=== PATIENT | female | born 1945 | race Caucasian/White ===

== ENCOUNTER 2016-09-13 13:21 | Emergency (ER) | payer MEDICARE, MEDICAID ==
[2016-09-13] MEDS ORDERED: ASPIRIN 81 MG TABLET, CHEWABLE PO ONE (13:28)
--- NOTE | 2016-09-13 13:37 | ER Document Report ---
ED Medical Screen (RME) - General Stated Complaint: CHEST PAIN,COUGH,CONGESTION Time seen by provider: 13:35 Mode of Arrival: Wheelchair Information source: Patient Notes: 71-year-old female presents to ED for chest pain the whole chest with cough for 2 weeks. Denies any fever or cardiac history. I have greeted and performed a rapid initial assessment of this patient. A comprehensive ED assessment and evaluation of the patient, analysis of test results and completion of medical decision making process will be conducted by an additional ED providers. TRAVEL OUTSIDE OF THE [place] IN LAST 30 DAYS: No - Related Data Allergies/Adverse Reactions: No Known Allergies Allergy (Verified 07/13/16 11:59) Past Medical History - Past Medical History Cardiac Medical History: Reports: Hx Hypertension - Hx of, no meds ever Denies: Hx Heart Attack Pulmonary Medical History: Reports: Hx Bronchitis, Hx COPD Denies: Hx Asthma, Hx Pneumonia Neurological Medical History: Denies: Hx Seizures GI Medical History: Reports: Hx Gastroesophageal Reflux Disease Musculoskeltal Medical History: Reports Hx Arthritis - hands, Comment Only Hx Muscle Weakness - From progressive ataxia slurred speech and decreased use of lower extremiti Psychiatric Medical History: Reports: Hx Dementia Infectious Medical History: Past Surgical History: Reports: Hx Hysterectomy, Hx Orthopedic Surgery - L foot ; R ankle - Immunizations Immunizations up to date: No Hx Diphtheria, Pertussis, Tetanus Vaccination: Yes
[2016-09-13 14:10] LABS: ABSOLUTE EOSINOPHILS # (AUTO) 0.8 10^3/uL (0.0-0.6); ABSOLUTE LYMPHOCYTES (AUTO) 1.8 10^3/uL (0.5-4.7); ABSOLUTE MONOCYTES (AUTO) 0.6 10^3/uL (0.1-1.4); ABSOLUTE NEUT (AUTO) 3.3 10^3/uL (1.7-8.2); BASOPHILS % (AUTO) 0.8 % (0-2); HEMATOCRIT 46.5 % (36.0-47.0); HEMOGLOBIN 15.2 g/dL (12.0-15.5); HGB HCT DIFFERENCE -0.9; MEAN CORPUSCULAR HGB CONC 32.7 g/dL (32.0-36.0); MEAN CORPUSCULAR VOLUME 95 fl (80-97); RED CELL DISTRIBUTION WIDTH 13.5 % (11.5-14.0); SEGMENTED NEUTROPHILS % (AUTO) 50.2 % (42-78); WHITE BLOOD COUNT 6.5 10^3/uL (4.0-10.5)
[2016-09-13 14:30] LABS: ALANINE AMINOTRANSFERASE 45 U/L (9-52); ALBUMIN 4.6 g/dL (3.5-5.0); ALKALINE PHOSPHATASE 130 U/L (38-126); ANION GAP 13 (5-19); ASPARTATE AMINO TRANSFERASE 34 U/L (14-36); BILIRUBIN,TOTAL 0.6 mg/dL (0.2-1.3); BLOOD UREA NITROGEN 12 mg/dL (7-20); CALCIUM 10.5 mg/dL (8.4-10.2); CARBON DIOXIDE 29 mmol/L (22-30); CHLORIDE 103 mmol/L (98-107); CREATINE KINASE 47 U/L (30-135); CREATININE RESULT 0.65 mg/dL (0.52-1.25); GLUCOSE 84 mg/dL (75-110); MAGNESIUM 2.2 mg/dL (1.6-2.3); POTASSIUM 4.7 mmol/L (3.6-5.0); SODIUM 144.7 mmol/L (137-145); TOTAL PROTEIN 7.5 g/dL (6.3-8.2)
[2016-09-13 14:42] LABS: CREATINE KINASE MB 0.72 ng/mL (<4.55)
[2016-09-13 14:44] LABS: TROPONIN I < 0.012 ng/mL
[2016-09-13] MEDS ORDERED: METHYLPREDNISOLONE INJ 125 MG/2 ML SDV IV ONE (16:13)
[2016-09-13] MEDS ORDERED: IPRATROPIUM/ALBUTEROL 0.5-2.5 MG/3 ML AMPUL NEB ONE ×3 (16:13→19:11)
--- NOTE | 2016-09-13 16:15 | ER Document Report ---
ED General - General Mode of Arrival: Wheelchair Information source: Patient, Relative - son and daughter TRAVEL OUTSIDE OF THE [place] IN LAST 30 DAYS: No - HPI Associated symptoms: Productive cough <LUBNA BOND - Last Filed: 09/13/16 21:58> <SAUMYAIRASEMA SRIDEVI - Last Filed: 09/13/16 22:47> - General Chief Complaint: Chest Pain Stated Complaint: CHEST PAIN,COUGH,CONGESTION Notes: Patient is a 71-year-old female presenting to the emergency department with complaints of difficulty breathing, cough and wheezing. Patient has also had some intermittent chest pain consistent with her cough. Patient has had the chest pain and increased cough for one week. Over the last 2 nights the patient has not been able to sleep well due to increased wheezing and coughing. Patient is present with her son and daughter, daughter is primary rn urgent care for the patient. Patient has an inhaler that she uses at home but has not been helping much past couple days. Patient also has a nebulizer at home but does not prefer to use it. Patient is a former smoker and quit approximately 15 years ago. Patient is wheelchair bound. (LUBNA BOND) - Related Data Allergies/Adverse Reactions: No Known Allergies Allergy (Verified 09/13/16 13:35) Past Medical History - General Information source: Patient - Social History Smoking Status: Former Smoker Cigarette use (# per day): No Chew tobacco use (# tins/day): No Frequency of alcohol use: None Drug Abuse: None Family History: None Patient has suicidal ideation: No Patient has homicidal ideation: No - Past Medical History Cardiac Medical History: Reports: Hx Hypertension - Hx of, no meds ever Pulmonary Medical History: Reports: Hx Bronchitis, Hx COPD GI Medical History: Reports: Hx Gastroesophageal Reflux Disease Musculoskeltal Medical History: Reports Hx Arthritis - hands, Comment Only Hx Muscle Weakness - From progressive ataxia slurred speech and decreased use of lower extremiti Psychiatric Medical History: Reports: Hx Dementia Infectious Medical History: Past Surgical History: Reports: Hx Hysterectomy, Hx Orthopedic Surgery - L foot ; R ankle - Immunizations Immunizations up to date: No Hx Diphtheria, Pertussis, Tetanus Vaccination: Yes Hx Pneumococcal Vaccination: 07/29/13 <LUBNA BOND - Last Filed: 09/13/16 21:58> Review of Systems - Review of Systems Constitutional: No symptoms reported EENT: No symptoms reported Cardiovascular: See HPI, Chest pain Respiratory: See HPI, Cough, Hurts to breathe, Short of breath, Wheezing Gastrointestinal: No symptoms reported Genitourinary: No symptoms reported Female Genitourinary: No symptoms reported Musculoskeletal: No symptoms reported Skin: No symptoms reported Hematologic/Lymphatic: No symptoms reported Neurological/Psychological: No symptoms reported -: Yes All other systems reviewed and negative <LUBNA BOND - Last Filed: 09/13/16 21:58> Physical Exam - Vital signs Interpretation: Tachycardic - General General appearance: Appears well, Alert In distress: Mild - HEENT Head: Normocephalic, Atraumatic Eyes: Normal Pupils: PERRL Mucous membranes: Normal - Respiratory Respiratory status: No respiratory distress Chest status: Nontender Breath sounds: Wheezing - coarse wheezing throughout Chest palpation: Normal - Cardiovascular Rhythm: Regular Heart sounds: Normal auscultation Murmur: No - Abdominal Inspection: Normal Distension: No distension Bowel sounds: Normal Tenderness: Nontender Organomegaly: No organomegaly - Back Back: Normal, Nontender - Extremities General upper extremity: Normal inspection, Normal ROM, Normal strength General lower extremity: Normal inspection, Normal ROM, Normal strength - Neurological Neuro grossly intact: Yes Cognition: Normal Orientation: AAOx4 [place] Coma Scale Eye Opening: Spontaneous [place] Coma Scale Verbal: Oriented [place] Coma Scale Motor: Obeys Commands [place] Coma Scale Total: 15 Speech: Normal - Psychological Associated symptoms: Normal affect, Normal mood - Skin Skin Temperature: Warm Skin Moisture: Dry <LUBNA BOND - Last Filed: 09/13/16 21:58> Course - Laboratory Result Diagrams: 09/13/16 13:45 09/13/16 13:45 <NELIKOLTONLUBNA - Last Filed: 09/13/16 21:58> - Laboratory Result Diagrams: 09/13/16 13:45 09/13/16 13:45 - Diagnostic Test Radiology reviewed: Image reviewed, Reports reviewed <IRASEMA KERNS - Last Filed: 09/13/16 22:47> - Re-evaluation Re-evalutation: 09/13/16 Patient with no acute findings on blood work. Patient's wheezing has nearly resolved after nebulizer treatment, steroid, and magnesium. The patient has dementia and has pulled out her line. Patient is given Ativan to calm her down. Had a long discussion with family who would prefer to take the patient home if possible as her dementia becomes very uncontrollable and she is admitted to the hospital. The patient's oxygen saturation is 95%. She is nonambulatory. Patient's respiratory rate is 20-22. She is nonlabored. They' re instructed immediately to return with this patient if she becomes any worse and to follow-up with her doctor Friday otherwise. Understand and agree with this plan. Stable for discharge. The patient will also be treated for a yeast infection on her skin. (IRASEMA KERNS) - Vital Signs Vital signs: Temp Pulse Resp BP Pulse Ox 98.2 F 114 H 19 111/58 L 94 09/13/16 20:45 09/13/16 13:37 09/13/16 20:42 09/13/16 20:42 09/13/16 20:42 (LUBNA BOND) (IRASEMA KERNS) - Laboratory Laboratory results interpreted by me: 09/13/16 09/13/16 13:45 13:45 Eosinophils % 12.0 H Absolute Eosinophils 0.8 H Calcium 10.5 H Alkaline Phosphatase 130 H (LUBNA BOND) (IRASEMA KERNS) Discharge <LUBNA BOND - Last Filed: 09/13/16 21:58> <IRASEMA KERNS - Last Filed: 09/13/16 22:47> - Discharge Clinical Impression: COPD exacerbation Condition: Stable Disposition: HOME, SELF-CARE Additional Instructions: Please return immediately if you have any worsening symptoms or concerns. Prescriptions: Ipratropium/Albuterol Sulfate [Duoneb 3 ml Ampul] 3 ml NEB [id number] PRN #30 vial.neb PRN Reason: Levofloxacin [Levaquin 750 mg Tablet] 750 mg PO DAILY #5 tablet Nystatin 15 gm TP DAILY 10 Days Nystatin 1 each MC DAILY 30 Days Prednisone 40 mg PO DAILY #6 tablet Referrals: EMI MARTINEZ MD [Primary Care Provider] - Follow up in 3-5 days Scribe Attestation: 09/13/16 22:47 I personally performed the services described in the documentation, reviewed and edited the documentation which was dictated to the scribe in my presence, and it accurately records my words and actions. (IRASEMA KERNS) Scribe Documentation - Scribe Written by Scribsilva:: Lubna Bond 09/13/16 21:30 acting as scribe for :: Saumya <LUBNA BOND - Last Filed: 09/13/16 21:58>
[2016-09-13] MEDS: MAGNESIUM SULFATE/D5W 100 ML IV SCH ×2 (16:20→17:43)
[2016-09-13] MEDS ORDERED: NORMAL SALINE 1000 ML 1,000 ML IV ONE (16:24)
[2016-09-13] MEDS ORDERED: LORAZEPAM INJ 2 MG/1 ML VIAL IM ONE (18:01)
--- NOTE | 2016-09-13 20:00 | EKG REPORT ---
SEVERITY:- OTHERWISE NORMAL ECG - SINUS RHYTHM BORDERLINE LEFT AXIS DEVIATION : Confirmed by: Lynette Bain MD 13-Sep-2016 20:00:00
[2016-09-13] MEDS ORDERED: LIDOCAINE 1% INJ-PF (10 MG/ML) 30 ML SDV INJ ONE (20:20)
[2016-09-13] MEDS ORDERED: CEFTRIAXONE INJ 1000 MG VIAL IM ONE (20:20)
[2016-09-13 20:47] VITALS: BP 111/58
[2016-09-13] MEDS ORDERED: NYSTATIN CREAM 15 GM TP ONE (21:14)
== END 2016-09-13 20:50 | disposition home or self-care (01) ==
LOC: ER 13:21
DX: J44.1 Chronic obstructive pulmonary disease with (acute) exacerbation (principal); R07.9 Chest pain, unspecified; R05 Cough; F03.90 Unspecified dementia, unspecified severity, without behavioral disturbance, psychotic disturbance, mood disturbance, and anxiety; F06.8 Other specified mental disorders due to known physiological condition; I10 Essential (primary) hypertension; K21.9 Gastro-esophageal reflux disease without esophagitis; Z90.710 Acquired absence of both cervix and uterus
CPT/HCPCS: 93005; 94640 ×2; 99285; 96372; 96361; 96375; 96365; 36415; 82553; 82550; 83735; 84443; 85025; 80053; 84484; 71020; 93010; A9270 ×2; J3490 ×2; J2930; J2060; J3475; J0696; J7030; J7620

== ENCOUNTER 2016-09-27 10:28 | Emergency (ER) | payer MEDICARE, MEDICAID ==
--- NOTE | 2016-09-27 10:45 | ER Document Report ---
ED Medical Screen (RME) - General Stated Complaint: KNEE INJURY Notes: left knee onset: last night hit her knee on the toilet seat, denies fall has a 4cm laceration down to patella tetanus UTD I have greeted and performed a rapid initial assessment of this patient. A comprehensive ED assessment and evaluation of the patient, analysis of test results and completion of the medical decision making process will be conducted by additional ED providers. TRAVEL OUTSIDE OF THE [place] IN LAST 30 DAYS: No - Related Data Allergies/Adverse Reactions: No Known Allergies Allergy (Verified 09/13/16 13:35) Past Medical History - Past Medical History Cardiac Medical History: Reports: Hx Hypertension - Hx of, no meds ever Denies: Hx Heart Attack Pulmonary Medical History: Reports: Hx Bronchitis, Hx COPD Denies: Hx Asthma, Hx Pneumonia Neurological Medical History: Denies: Hx Seizures Renal/ Medical History: Denies: Hx Peritoneal Dialysis GI Medical History: Reports: Hx Gastroesophageal Reflux Disease Musculoskeltal Medical History: Reports Hx Arthritis - hands, Comment Only Hx Muscle Weakness - From progressive ataxia slurred speech and decreased use of lower extremiti Psychiatric Medical History: Reports: Hx Dementia Infectious Medical History: Past Surgical History: Reports: Hx Hysterectomy, Hx Orthopedic Surgery - L foot ; R ankle - Immunizations Immunizations up to date: No Hx Diphtheria, Pertussis, Tetanus Vaccination: Yes Physical Exam - Vital signs Vitals: Temp Pulse Resp BP Pulse Ox 97.7 F 89 18 127/66 H 96 09/27/16 10:34 09/27/16 10:34 09/27/16 10:34 09/27/16 10:34 09/27/16 10:34 Course - Vital Signs Vital signs: Temp Pulse Resp BP Pulse Ox 97.7 F 89 18 127/66 H 96 09/27/16 10:34 09/27/16 10:34 09/27/16 10:34 09/27/16 10:34 09/27/16 10:34
[2016-09-27] MEDS ORDERED: LIDOCAINE 1%/EPINEPHRINE INJ 20 ML VIAL INJ ONE (11:39)
--- NOTE | 2016-09-27 11:42 | ER Document Report ---
ED General - General Chief Complaint: Knee Injury Stated Complaint: KNEE INJURY Mode of Arrival: Wheelchair Information source: Patient, Relative Notes: Patient is a 71 yo female with history of dementia who presents s/p left knee injury that occurred around 10 pm last night. Family states patient hit her left knee on the toilet while using the bathroom. She has prior injury to that knee 2 months ago requiring suture repair and she reinjured the same area. Tetanus UTD. No drainage, bleeding or swelling noted to area. TRAVEL OUTSIDE OF THE [place] IN LAST 30 DAYS: No - Related Data Allergies/Adverse Reactions: No Known Allergies Allergy (Verified 09/13/16 13:35) Past Medical History - Social History Smoking Status: Smoker,Current Status Unk Family History: None Patient has suicidal ideation: No Patient has homicidal ideation: No - Past Medical History Cardiac Medical History: Reports: Hx Hypertension - Hx of, no meds ever Denies: Hx Heart Attack Pulmonary Medical History: Reports: Hx Bronchitis, Hx COPD Denies: Hx Asthma, Hx Pneumonia Neurological Medical History: Denies: Hx Seizures Renal/ Medical History: Denies: Hx Peritoneal Dialysis GI Medical History: Reports: Hx Gastroesophageal Reflux Disease Musculoskeltal Medical History: Reports Hx Arthritis - hands, Comment Only Hx Muscle Weakness - From progressive ataxia slurred speech and decreased use of lower extremiti Psychiatric Medical History: Reports: Hx Dementia Infectious Medical History: Past Surgical History: Reports: Hx Hysterectomy, Hx Orthopedic Surgery - L foot ; R ankle - Immunizations Immunizations up to date: No Hx Diphtheria, Pertussis, Tetanus Vaccination: Yes Hx Pneumococcal Vaccination: 07/29/13 Review of Systems - Review of Systems Constitutional: No symptoms reported EENT: No symptoms reported Cardiovascular: No symptoms reported Respiratory: No symptoms reported Gastrointestinal: No symptoms reported Genitourinary: No symptoms reported Female Genitourinary: No symptoms reported Musculoskeletal: See HPI Skin: See HPI Hematologic/Lymphatic: No symptoms reported Neurological/Psychological: No symptoms reported Physical Exam - Vital signs Vitals: Temp Pulse Resp BP Pulse Ox 97.7 F 89 18 127/66 H 96 09/27/16 10:34 09/27/16 10:34 09/27/16 10:34 09/27/16 10:34 09/27/16 10:34 Interpretation: Normal - diastolic elevation but otherwise normal - Notes Notes: PHYSICAL EXAM: CONSTITUTIONAL: Alert and oriented, well-appearing and in no acute distress. Sitting comfortably in wheelchair. HENT: Normocephalic, atraumatic. Moist mucous membranes. EYES: Pupils equal round and reactive to light, EOM intact. Sclera anicteric, conjunctiva are normal. No entrapment. HEART: Regular rate and rhythm without murmurs. LUNGS: CTAB and equal. No wheezes, rales or rhonchi. GI: Normactive bowel sounds. Non-tender, non-distended. No organomegaly. no CVAT. EXTREMITIES: Normal range of motion, no pitting edema. No cyanosis. Cap Refill < 3 seconds. SKIN: Warm and dry. Normal turgor. No rashes or lesions noted. 5 cm linear laceration to anterior surface of patella, bleeding controlled, no swelling, erythema or drainage noted. Course - Re-evaluation Re-evalutation: 09/27/16 11:38 Patient seen and examined. Tetanus UTD. I have consulted with the supervisory physician per [facility] guidelines. Due to laceration left opened >12 hours , will discuss risk of closure with patient and patient's family. Patient's family voiced understanding of increased risk of infection in delayed closure of laceration. 09/27/16 12:50 Review of left knee xray showed no dislocation, fracture or metallic foreign body. Irrigation and exploration of wound revealed no foreign body. Laceration closed using steri-strips due to family's concern with patient's mobility and location of laceration. Discharged home in stable condition, script for abx given for empiric coverage. Follow-up with primary care doctor. Return precautions given. - Vital Signs Vital signs: Temp Pulse Resp BP Pulse Ox 97.8 F 80 18 125/60 100 09/27/16 13:04 09/27/16 13:04 09/27/16 13:04 09/27/16 13:04 09/27/16 13:04 - Diagnostic Test Radiology reviewed: Image reviewed, Reports reviewed Radiology results interpreted by me: 09/27/16 13:23 Negative left knee xray for fracture, dislocation or foreign body. Soft tissue injury consistent with laceration. Procedures - Laceration/Wound Repair Left Anterior Knee Wound length (cm): 5 Wound's Depth, Shape: Superficial Laceration pre-procedure: Betadine prep applied, Shur-Clens applied Wound explored: Clean, No foreign body removed Irrigated w/ Saline (mLs): 30 Wound Repaired With: Steri-strips Layer Closure?: No Post-procedure wound care: Sterile dressing applied Post-procedure NV exam normal: Yes Complications: No Discharge - Discharge Clinical Impression: Laceration of knee without complication Qualifiers: Encounter type: initial encounter Laterality: left Qualified Code(s): S81.012A - Laceration without foreign body, left knee, initial encounter Condition: Stable Disposition: HOME, SELF-CARE Instructions: Laceration Care ([facility]), Soap Cleansing ([facility]), Prophylactic Antibiotic ([facility]) Additional Instructions: Return immediately for any new or worsening symptoms. Follow-up with primary care provider, call tomorrow to make followup appointment. NON-SUTURED LACERATION: Your laceration did not require suturing. Some lacerations cannot be sutured because of increased infection risk, while others simply don't need stitches because they are shallow or very short. Your injury should be protected while it heals. Usually complete healing takes 10 to 14 days. Keep the dressing clean and dry, and change it every day. If you notice increasing pain, redness, swelling, drainage, or tender lumps in the armpit or groin above the injury, infection may be present. You should call the doctor at once. SOAP CLEANSING: Gently wash the wound daily using a mild soap (like Ivory, Phisoderm, Neutrogena). Use warm water, rubbing gently until all debris, ooze, and crusting have been washed from the wound. Allow to dry briefly (about 10 minutes) after cleaning. Repeat this cleansing at least three times a day for the first two days and then once or twice a day. ANTIBIOTIC OINTMENT PROTECTION: Your wounds are such that dressing them is not practical or optional. After cleansing, you should apply a thin coating of antibiotic ointment ( Bacitracin, not Neosporin) to the wounds at least three times daily. This lessens infection risk, and may decrease the amount of scarring. Use a q-tip or dull butter knife, not your finger, to apply this ointment. Any debris or ooze which builds up in the ointment should be gently rubbed off with a sterile gauze pad. Harder crusting may need to be gently scrubbed off with a clean wash cloth with soap and warm water, perhaps applying a warm, wet wash cloth to the wound for ten minutes first. Development of redness, severe itching, or blistering may mean allergy to the ointment. See the doctor. PROPHYLACTIC ANTIBIOTIC: The antibiotics which have been prescribed are designed to decrease the risk of infection. Only certain types of wounds benefit from this -- the typical cut, scrape, or burn DOES NOT require antibiotics. Of course, infection can still occur despite the use of prophylactic antibiotics. Your wound will heal with less chance of an infectious complication if you take the medication as directed. The most important dose is the FIRST dose, so don't delay filling the prescription! FOLLOW-UP CARE: If you have been referred to another physician for follow-up care, call that physicians office for an appointment as you were instructed. If you experience a significant change in your laceration, or if you are concerned there may be an infection (swelling, redness, drainage, increasing tenderness, red streaks, tender lumps in the armpit or groin above the laceration, or fever) , return to the Emergency Department immediately re-evaluation. Prescriptions: Cephalexin Monohydrate [Keflex 250 mg Capsule] 250 mg PO Q8 #30 capsule Forms: Elevated Blood Pressure Referrals: EMI MARTINEZ MD [Primary Care Provider] - Follow up as needed
[2016-09-27 13:05] VITALS: BP 125/60
== END 2016-09-27 13:06 | disposition home or self-care (01) ==
LOC: ER 10:28
DX: S81.012A Laceration without foreign body, left knee, initial encounter (principal); W22.09XA Striking against other stationary object, initial encounter; Y93.89 Activity, other specified; Y92.002 Bathroom of unspecified non-institutional (private) residence as the place of occurrence of the external cause; I10 Essential (primary) hypertension; J44.9 Chronic obstructive pulmonary disease, unspecified
CPT/HCPCS: 99283; 73560; J3490

== ENCOUNTER 2017-03-03 19:43 | Emergency (ER) | payer MEDICARE, MEDICAID ==
--- NOTE | 2017-03-03 20:16 | ER Document Report ---
ED General - General Chief Complaint: Swallowed Foreign Body Stated Complaint: POSSIBLE CHOKING EPISODE Time Seen by Provider: 03/03/17 19:58 Mode of Arrival: Medic Information source: Patient, Relative Notes: 71-year-old female presents to ED after choking on a piece of bone restriction at home tonight at dinnertime. Daughter states that she started choking on the chicken she started choking and coughing up a lot of food and mucus. She kept losing her breath and choking and vomiting she became very concerned and brought her to the emergency room via EMS. She states when she left the house she reported a pretty poor shape of of time she got to the emergency room her mother is welcome to her normal self happy and no longer in any discomfort. Patient has a history of high cholesterol bronchitis COPD dementia and reflux. TRAVEL OUTSIDE OF THE [place] IN LAST 30 DAYS: No - HPI Onset: This evening Onset/Duration: Gone Quality of pain: No pain Severity: None Pain Level: Denies Associated symptoms: Nonproductive cough, Other - Choking on her food and vomiting Exacerbated by: Denies Relieved by: Denies Similar symptoms previously: Yes Recently seen / treated by doctor: No - Related Data Allergies/Adverse Reactions: No Known Allergies Allergy (Verified 09/13/16 13:35) Past Medical History - General Information source: Patient - Social History Smoking Status: Former Smoker Cigarette use (# per day): No Chew tobacco use (# tins/day): No Smoking Education Provided: No Frequency of alcohol use: None Drug Abuse: None Family History: None - Past Medical History Cardiac Medical History: Reports: Hx Hypertension - Hx of, no meds ever Denies: Hx Heart Attack Pulmonary Medical History: Reports: Hx Bronchitis, Hx COPD Denies: Hx Asthma, Hx Pneumonia Neurological Medical History: Denies: Hx Seizures Renal/ Medical History: Denies: Hx Peritoneal Dialysis GI Medical History: Reports: Hx Gastroesophageal Reflux Disease Musculoskeltal Medical History: Reports Hx Arthritis - hands, Comment Only Hx Muscle Weakness - From progressive ataxia slurred speech and decreased use of lower extremiti Psychiatric Medical History: Reports: Hx Dementia Infectious Medical History: Past Surgical History: Reports: Hx Hysterectomy, Hx Orthopedic Surgery - L foot ; R ankle - Immunizations Immunizations up to date: No Hx Diphtheria, Pertussis, Tetanus Vaccination: Yes Hx Pneumococcal Vaccination: 07/29/13 Review of Systems - Review of Systems Constitutional: No symptoms reported EENT: No symptoms reported Cardiovascular: No symptoms reported Respiratory: Other - Choked on her food at home but is in no discomfort at this time. Gastrointestinal: Abdominal pain - Patient states she had pain when she was vomiting but no pain or discomfort at this time. Genitourinary: No symptoms reported Female Genitourinary: No symptoms reported Musculoskeletal: No symptoms reported Skin: No symptoms reported Hematologic/Lymphatic: No symptoms reported Neurological/Psychological: Dementia -: Yes All other systems reviewed and negative Physical Exam - Vital signs Vitals: Resp 22 H 03/03/17 19:55 Interpretation: Normal - General General appearance: Appears well, Alert Notes: Very unkempt with food down the front of her clothes and under clothes from where she choked on food during the. - HEENT Head: Normocephalic, Atraumatic Eyes: Normal Pupils: PERRL - Respiratory Respiratory status: No respiratory distress Chest status: Nontender Breath sounds: Normal Chest palpation: Normal - Cardiovascular Rhythm: Regular Heart sounds: Normal auscultation Murmur: No - Abdominal Inspection: Normal Distension: No distension Bowel sounds: Hyperactive Tenderness: Nontender Organomegaly: No organomegaly - Back Back: Normal, Nontender - Extremities General upper extremity: Normal inspection, Nontender, Normal color, Normal ROM , Normal temperature General lower extremity: Normal inspection, Nontender, Normal color, Normal ROM , Normal temperature, Normal weight bearing. No: Dave's sign - Neurological Neuro grossly intact: Yes Cognition: Normal Orientation: AAOx4 - Daughter states patient has dementia but is able to answer all questions at this time. [place] Coma Scale Eye Opening: Spontaneous [place] Coma Scale Verbal: Oriented Candice Coma Scale Motor: Obeys Commands [place] Coma Scale Total: 15 Speech: Normal Motor strength normal: LUE, RUE, LLE, RLE Sensory: Normal - Psychological Associated symptoms: Normal affect, Normal mood - Skin Skin Temperature: Warm Skin Moisture: Dry Skin Color: Normal Course - Re-evaluation Re-evalutation: 03/03/17 20:30 Patient is totally asymptomatic at this time she is laughing denies any discomfort. And they are ready to go home. Daughter had questions of whether mother should change her diet. Total visit as long as she does not do this on a regular basis she should be able to eat food just talked up small and small portions at a time. If she frequently chokes on her food she will need a speech therapy consult with a swallow test to see if she needs to change the consistency of her. - Vital Signs Vital signs: Temp Pulse Resp BP Pulse Ox 97.8 F 22 H 130/64 H 95 03/03/17 20:24 03/03/17 20:24 03/03/17 20:16 03/03/17 20:24 Discharge - Discharge Clinical Impression: Choked on piece of chicken resolved Condition: Stable Disposition: HOME, SELF-CARE Additional Instructions: Your mother was seen today for check on a piece of chicken at dinner time. S he is no longer choking she is back to her normal self. You may want to give her small portions at a time if she wants more give her a second helping. Try cutting her chicken smaller and if she continues to choke she may need to give her pured food. You can always cut the chicken smaller and put some kind of gravy or something on it to make it more moist so that she would not choke easily.. Follow up with your primary doctor and see if she needs a speech therapy consult if she continues to choke at this is not a routine thing she would not need one at this time. But if this does not become more frequent she will need a speech therapy consult to test her swallowing. FOLLOW-UP CARE: If you have been referred to a physician for follow-up care, call the physician s office for an appointment as you were instructed or within the next two days. If you experience worsening or a significant change in your symptoms, notify the physician immediately or return to the Emergency Department at any time for re-evaluation. Referrals: EMI MARTINEZ MD [ACTIVE STAFF] - Follow up as needed
[2017-03-03 20:24] VITALS: BP 130/64
== END 2017-03-03 20:35 | disposition home or self-care (01) ==
LOC: ER 19:43
DX: T17.928A Food in respiratory tract, part unspecified causing other injury, initial encounter (principal); R05 Cough; X58.XXXA Exposure to other specified factors, initial encounter; Y92.009 Unspecified place in unspecified non-institutional (private) residence as the place of occurrence of the external cause; J44.9 Chronic obstructive pulmonary disease, unspecified; E78.00 Pure hypercholesterolemia, unspecified; K21.9 Gastro-esophageal reflux disease without esophagitis; F03.90 Unspecified dementia, unspecified severity, without behavioral disturbance, psychotic disturbance, mood disturbance, and anxiety; Z90.710 Acquired absence of both cervix and uterus
CPT/HCPCS: 99283

== ENCOUNTER 2017-07-19 10:19 | Emergency (ER) | payer MEDICARE, MEDICAID ==
--- NOTE | 2017-07-19 11:55 | ER Document Report ---
ED General - General Chief Complaint: Nonproductive Cough Stated Complaint: COUGH, LEG SWELLING, EYE PAIN Time Seen by Provider: 07/19/17 10:48 Notes: Patient has been wheezing with the cough and difficulty breathing for the past couple of weeks. Symptoms seem to be worsening during this past week. Another problem is that the patient's right eye has been tearing and watering a lot and patient says it is "burning" just noted this morning. She also has a "patch" of red area on the left rib cage which has in the past been treated what nystatin for a fungus infection. The family is out of nystatin so they have been using Neosporin for the past 5 days. Also the left foot and ankle appear to be swollen this morning. No known injury. Patient does not ambulate and is wheelchair confined. No history of gout or other arthritides. Patient has not had any vomiting or diarrhea. No UTI symptoms. Has a history of COPD and has some cough and shortness of breath. She uses a nebulizer to administer DuoNeb and budesonide. She is out of the latter. Has not had any fever. 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 This condition is inherited within her family and several members of the family have this disorder. Patient has no history of heart disease. Not diabetic. No hypertension. Has dementia and former smoker, stopped many years ago. TRAVEL OUTSIDE OF THE [place] IN LAST 30 DAYS: No - Related Data Allergies/Adverse Reactions: No Known Allergies Allergy (Verified 07/19/17 10:20) Home Medications: Current Home Medications Risperidone [Risperdal] 0.5 mg PO DAILY PRN 07/19/17 [History] Past Medical History - Social History Smoking Status: Never Smoker Chew tobacco use (# tins/day): No Frequency of alcohol use: None Drug Abuse: None Family History: None, Reviewed & Not Pertinent Patient has suicidal ideation: No Patient has homicidal ideation: No - Past Medical History Cardiac Medical History: Reports: Hx Hypertension - Hx of, no meds ever Pulmonary Medical History: Reports: Hx Bronchitis, Hx COPD GI Medical History: Reports: Hx Gastroesophageal Reflux Disease Musculoskeltal Medical History: Reports Hx Arthritis - hands, Comment Only Hx Muscle Weakness - From progressive ataxia slurred speech and decreased use of lower extremiti Psychiatric Medical History: Reports: Hx Dementia Infectious Medical History: Past Surgical History: Reports: Hx Hysterectomy, Hx Orthopedic Surgery - L foot ; R ankle - Immunizations Immunizations up to date: No Hx Diphtheria, Pertussis, Tetanus Vaccination: Yes Hx Pneumococcal Vaccination: 07/29/13 Review of Systems - Review of Systems Notes: REVIEW OF SYSTEMS: Answered by the daughter who is here with the patient. CONSTITUTIONAL : Denies fever. EENT: Denies ear, nose or mouth or throat pain or other symptoms. See HPI regarding right eye. CARDIOVASCULAR: Denies chest pain. RESPIRATORY: Has cough, chest congestion, or shortness of breath. GASTROINTESTINAL: Denies abdominal pain or nausea, vomiting, or diarrhea. GENITOURINARY: Denies difficulty or painful urinating, urinary frequency, blood in urine. MUSCULOSKELETAL: Denies back or neck pain. Denies joint pain, but swelling of the left foot and ankle. SKIN: Has red patches skin in the left rib cage area. NEUROLOGICAL: Denies LOC or altered mental status. Denies headache. Denies sensory loss or motor deficits. ALL OTHER SYSTEMS REVIEWED AND NEGATIVE. Physical Exam - Vital signs Vitals: Temp Pulse Resp BP Pulse Ox 97.5 F 87 16 168/63 H 95 07/19/17 10:31 07/19/17 10:31 07/19/17 10:31 07/19/17 10:31 07/19/17 10:31 Interpretation: Normal - Notes Notes: PHYSICAL EXAMINATION: GENERAL: Well-appearing, in no acute distress. Vital signs are all essentially normal. Patient is pleasant and awake and alert and tries to answer questions, but is confused and behaves much like any other dementia patient. HEAD: Atraumatic, normocephalic. Atraumatic. EYES: Pupils equal round and reactive to light, extraocular movements intact. Right eyelids both seem puffy and swollen compared to the left. No evidence of infection of the lids or retro-orbitally. The right eyeball itself appears normal. There is no injection, tearing, or drainage. Stained with fluorescein negative for abrasion or scratch or scrape. No foreign body seen. ENT: oropharynx clear without exudates. Moist mucous membranes. NECK: Normal range of motion, supple. LUNGS: Breath sounds clear and equal bilaterally. HEART: Regular rate and rhythm without murmurs. ABDOMEN: Soft, nontender. No guarding or rebound. BACK: No tenderness throughout entire back. EXTREMITIES: Normal range of motion without pain. Patient has difficult to palpate pulses in either foot, but, with a Doppler handset, I am able to hear pulsations in the left dorsalis pedis artery and in the right posterior tibial artery. Both toes and feet are pink, the right foot being slightly less pink than the left foot and very slightly cooler to the touch, but capillary refill of less than 2 seconds in the big toe of each foot. The left ankle has some soft tissue swelling around it, but does not appear to be painful to touch or move. Daughter says she has neuropathy and does not have much feeling in her lower extremities. NEUROLOGICAL: Normal speech, but confused. 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 Normal sensory, motor, and reflex exams. Awake, alert, and oriented x3. Cranial nerves normal. PSYCH: Normal mood, normal affect. SKIN: Warm, dry. Small erythematous area between the ribs in the left lateral chest which appears to be a fairly typical fungal skin infection. Course - Vital Signs Vital signs: Temp Pulse Resp BP Pulse Ox 97.5 F 89 16 153/93 H 98 07/19/17 10:31 07/19/17 14:22 07/19/17 14:22 07/19/17 14:22 07/19/17 14:22 - Laboratory Result Diagrams: 07/19/17 12:03 07/19/17 12:03 Laboratory results interpreted by me: 07/19/17 07/19/17 11:36 12:03 Sodium 145.1 H ALT 58 H Alkaline Phosphatase 128 H Urine Blood SMALL H Urine Nitrite POSITIVE H Ur Leukocyte Esterase SMALL H - Diagnostic Test Radiology results interpreted by me: 07/19/17 19:36 Chest x-ray shows no acute findings. Normal. Discharge - Discharge Clinical Impression: UTI (urinary tract infection), URI (upper respiratory infection), Fungal skin infection Condition: Stable Disposition: HOME, SELF-CARE Additional Instructions: BRONCHITIS: You have acute bronchitis. This disease is an infection or inflammation of the air passageways in your lungs. Symptoms usually include cough, low grade fever, shortness of breath, and wheezing. The cough usually persists for a couple of weeks. Most cases of bronchitis get better without antibiotics. We prescribe antibiotics when we believe bacteria are damaging your airways, or if there's high risk the bronchitis will worsen into pneumonia. Increase your fluid intake. A cool mist humidifier may make your lungs more comfortable. An expectorant (cough medicine that loosens phlegm) can help. If you smoke, STOP!!! Recovery from bronchitis can be somewhat slow, but you should see improvement within a day or two. Repeated episodes of bronchitis may result in lung damage -- for example, chronic bronchitis, recurrent pneumonias, or emphysema. Call the doctor if you develop increasing fever, shortness of breath, chest pain, bloody sputum, or otherwise worsen. If you have not improved at all after several days, contact the physician. BRONCHITIS WITH BRONCHOSPASM (WHEEZING): You have bronchitis with bronchospasm (wheezing). Sometimes people develop wheezing with a chest cold. This occurs either because of an underlying tendency toward asthma or because the virus itself irritates the bronchial tubes. This irritation causes cough, shortness of breath, and wheezing. Emergency treatment of bronchospasm may include adrenaline shots or bronchodilator aerosol. You may feel lightheaded and have a rapid pulse for an hour or two. Rest and get plenty of fluids. At home, we'll treat you with a bronchodilator inhaler. Corticosteroids may be required for some patients. Until you recover, avoid chemical fumes, dusts, pollens, and exercising in very cold or dry air. If you smoke, stop now! Most cases of bronchitis get better without antibiotics. We prescribe antibiotics when we believe bacteria are damaging your airways, or if there's high risk the bronchitis will worsen into pneumonia. Increase your fluid intake. A cool mist humidifier may make your lungs more comfortable. An expectorant (cough medicine that loosens phlegm) can help. Repeated episodes of bronchitis and bronchospasm may result in lung damage -- for example, chronic bronchitis, recurrent pneumonias, or emphysema. If you develop a fever, increased wheezing, chest pain, or severe shortness of breath, you should contact the doctor immediately. INHALED BRONCHODILATORS: You have received a treatment of and/or prescription for an inhaled bronchodilator -- a medication which stimulates the airways in the lung to dilate. This improves the flow of air in asthma, bronchitis, and emphysema. These medicines have some similarity to adrenaline, and can cause similar side effects: shakiness, racing heart, and a sense of nervousness. These side effects decrease with time. Contact your doctor if these side effects are severe. Do not over-use the medicine. Too-frequent use of the inhaler may make it ineffective. Call your doctor if the inhaler is not controlling your symptoms at the prescribed doses. USE OF ACETAMINOPHEN (Tylenol): Acetaminophen may be taken for pain relief or fever control. It's much safer than aspirin, offering a wider range of "safe" dosages. It is safe during . Some brand names are Tylenol, Panadol, Datril, Anacin 3, Tempra, and Liquiprin. Acetaminophen can be repeated every four hours. The following are maximum recommended dosages: >89 pounds or adults 650 mg to 900 mg Acetaminophen can be repeated every four hours. Maximum dose not to exceed 4000 mg a day. URINARY TRACT INFECTION: Your evaluation indicates that you have a urinary tract infection. This is due to germs growing in the bladder. This is a common problem. This infection usually responds quickly to antibiotics. Your antibiotic should be taken exactly as prescribed. Drink plenty of fluids -- three to four quarts a day. Occasionally, a bladder anesthetic will be prescribed to help stop the feeling of urgency until the antibiotic has a chance to clear the infection. This may cause your urine to be dark orange. Certain urine infections require a culture. If the doctor obtained a culture, the results will be back in two days. You should call to see if a change in treatment is needed. A repeat urinalysis after you finish treatment is often recommended. The physician will let you know if further testing is required. Call the doctor if you develop fever, chills, flank pain, inability to urinate, or blood in the urine. ANTIBIOTIC THERAPY: You have been given an antibiotic prescription. It's important that you take all the medication, unless instructed otherwise by your physician. Failure to complete the entire course can result in relapse of your condition. Common side effects of antibiotics include nausea, intestinal cramping, or diarrhea. Women may develop vaginal yeast infections, and babies can get yeast (thrush) in the mouth following the use of antibiotics. Contact your physician if you develop significant side effects from this medication. Allergy to this antibiotic can result in hives, wheezing, faintness, or itching. If symptoms of allergy occur, stop the medication and call the doctor. LEVOFLOXACIN: You have been given an antibacterial agent, levofloxacin (Levaquin). This medicine is not related to the penicillins, sulfas, cephalosporins, or tetracyclines. It is often given to patients who are allergic to these drugs. It has been chosen for you either because other drugs are not appropriate, or because of the nature of your problem. Levaquin should not be taken with antacids, as these can decrease its effectiveness. It can be taken without regard to meals. LEVAQUIN SHOULD NOT BE TAKEN BY CHILDREN, NURSING WOMEN, OR WOMEN. Although Levaquin is usually well-tolerated, common side effects can include nausea and diarrhea. Contact your doctor if you experience any unusual symptoms while on this medication, such as joint pain or swelling, shortness of breath, wheezing, faintness, or hives. It appears that she may have a skin infection which is likely due to a yeast or fungus organism. FOLLOW-UP CARE: If you have been referred to a physician for follow-up care, call the physician s office for an appointment as you were instructed or within the next two days. If you experience worsening or a significant change in your symptoms, notify the physician immediately or return to the Emergency Department at any time for re-evaluation. Prescriptions: Budesonide 1 mg IH Q6HP PRN #30 ampul.neb PRN Reason: Levofloxacin [Levaquin 750 mg Tablet] 750 mg PO DAILY #5 tablet Nystatin 30 gm TP BID #1 cream..g. Referrals: EMI MARTINEZ MD [Primary Care Provider] - Follow up as needed
[2017-07-19 12:10] LABS: APPEARANCE,URINE SLIGHTLY-CLOUDY; BILIRUBIN,URINE NEGATIVE (NEGATIVE); GLUCOSE, URINE NEGATIVE (NEGATIVE); KETONES,URINE NEGATIVE (NEGATIVE); LEUKOCYTE ESTERASE,URINE SMALL (NEGATIVE); NITRITE,URINE POSITIVE (NEGATIVE); PROTEIN,URINE NEGATIVE (NEGATIVE); UROBILINOGEN,URINE NEGATIVE mg/dL (<2.0)
[2017-07-19 12:12] LABS: ABSOLUTE BASOPHILS # (AUTO) 0.1 10^3/uL (0.0-0.2); ABSOLUTE EOSINOPHILS # (AUTO) 0.4 10^3/uL (0.0-0.6); ABSOLUTE LYMPHOCYTES (AUTO) 1.8 10^3/uL (0.5-4.7); ABSOLUTE MONOCYTES (AUTO) 0.5 10^3/uL (0.1-1.4); ABSOLUTE NEUT (AUTO) 4.7 10^3/uL (1.7-8.2); BASOPHILS % (AUTO) 0.8 % (0-2); EOSINOPHILS % (AUTO) 5.2 % (0-6); HEMATOCRIT 43.3 % (36.0-47.0); HEMOGLOBIN 14.7 g/dL (12.0-15.5); HGB HCT DIFFERENCE 0.8; LYMPHOCYTES % (AUTO) 23.9 % (13-45); MEAN CORPUSCULAR HEMOGLOBIN 31.7 pg (27.0-33.4); MEAN CORPUSCULAR VOLUME 93 fl (80-97); MONOCYTES % (AUTO) 7.3 % (3-13); RED BLOOD COUNT 4.63 10^6/uL (3.72-5.28); RED CELL DISTRIBUTION WIDTH 13.3 % (11.5-14.0); SEGMENTED NEUTROPHILS % (AUTO) 62.8 % (42-78); WHITE BLOOD COUNT 7.5 10^3/uL (4.0-10.5)
[2017-07-19 12:16] LABS: BACTERIA,URINE 4+ /HPF; RBC,URINE 0-1 /HPF
[2017-07-19 12:37] LABS: ALANINE AMINOTRANSFERASE 58 U/L (9-52); ALBUMIN 4.1 g/dL (3.5-5.0); ALKALINE PHOSPHATASE 128 U/L (38-126); ANION GAP 11 (5-19); ASPARTATE AMINO TRANSFERASE 33 U/L (14-36); BILIRUBIN,DIRECT 0.3 mg/dL (0.0-0.4); BILIRUBIN,TOTAL 0.5 mg/dL (0.2-1.3); BLOOD UREA NITROGEN 15 mg/dL (7-20); CALCIUM 9.5 mg/dL (8.4-10.2); CARBON DIOXIDE 28 mmol/L (22-30); CHLORIDE 106 mmol/L (98-107); CREATININE RESULT 0.68 mg/dL (0.52-1.25); GLUCOSE 84 mg/dL (75-110); POTASSIUM 4.5 mmol/L (3.6-5.0); SODIUM 145.1 mmol/L (137-145); TOTAL PROTEIN 6.7 g/dL (6.3-8.2)
[2017-07-19 12:48] LABS: CREATINE KINASE MB 1.15 ng/mL (<4.55)
[2017-07-19 12:50] LABS: TROPONIN I < 0.012 ng/mL
--- NOTE | 2017-07-19 13:01 | RADIOLOGY REPORT (SQ) ---
EXAM DESCRIPTION: CHEST PA/LAT COMPLETED DATE/TIME: 07/19/2017 12:15 pm REASON FOR STUDY: Cough and wheezing COMPARISON: Two-view chest 09/13/2016, 07/13/2016 EXAM PARAMETERS: NUMBER OF VIEWS: two views TECHNIQUE: Digital Frontal and Lateral radiographic views of the chest acquired. RADIATION DOSE: NA LIMITATIONS: none FINDINGS: LUNGS AND PLEURA: No opacities, masses or pneumothorax. No pleural effusion. MEDIASTINUM AND HILAR STRUCTURES: No masses or contour abnormalities. HEART AND VASCULAR STRUCTURES: Heart normal size. No evidence for failure. BONES: No acute findings. HARDWARE: None in the chest. OTHER: No other significant finding. IMPRESSION: NO SIGNIFICANT RADIOGRAPHIC FINDING IN THE CHEST. TECHNICAL DOCUMENTATION: JOB ID: [id number] [email or web address]- All Rights Reserved
--- NOTE | 2017-07-19 13:09 | RADIOLOGY REPORT (SQ) ---
EXAM DESCRIPTION: FOOT LEFT COMPLETE COMPLETED DATE/TIME: 07/19/2017 12:59 pm REASON FOR STUDY: Swelling of left foot, no known injury COMPARISON: None. NUMBER OF VIEWS: Three views. TECHNIQUE: AP, lateral and oblique radiographic images acquired of the left foot. LIMITATIONS: None. FINDINGS: MINERALIZATION: Osteoporotic BONES: No acute fracture or dislocation. No worrisome bone lesions. JOINTS: No effusions. SOFT TISSUES: No soft tissue swelling. No foreign body. OTHER: No other significant finding. IMPRESSION: NEGATIVE STUDY OF THE LEFT FOOT. NO RADIOGRAPHIC EVIDENCE OF ACUTE INJURY. TECHNICAL DOCUMENTATION: JOB ID: [id number] [email or web address]- All Rights Reserved
[2017-07-19 15:16] VITALS: BP 153/93
--- NOTE | 2017-07-19 20:58 | EKG REPORT ---
SEVERITY:- OTHERWISE NORMAL ECG - SINUS RHYTHM BORDERLINE LEFT AXIS DEVIATION : Confirmed by: Vivek He MD 19-Jul-2017 14:23:31
== END 2017-07-19 15:16 | disposition home or self-care (01) ==
LOC: ER 10:19
DX: J06.9 Acute upper respiratory infection, unspecified (principal); N39.0 Urinary tract infection, site not specified; B36.9 Superficial mycosis, unspecified; J44.9 Chronic obstructive pulmonary disease, unspecified; R05 Cough; R06.2 Wheezing; G62.9 Polyneuropathy, unspecified; I10 Essential (primary) hypertension; H57.8 Other specified disorders of eye and adnexa; M79.89 Other specified soft tissue disorders; M25.472 Effusion, left ankle; G31.9 Degenerative disease of nervous system, unspecified; F03.90 Unspecified dementia, unspecified severity, without behavioral disturbance, psychotic disturbance, mood disturbance, and anxiety; Z99.3 Dependence on wheelchair; Z79.899 Other long term (current) drug therapy; Z79.51 Long term (current) use of inhaled steroids
CPT/HCPCS: 36415; 51701; 71020; 80053; 81001; 82553; 83880; 84484; 84550; 85025; 87086; 87088; 87186; 87804; 93005; 93010; 99284

== ENCOUNTER → 2018-07-28 | Outpatient (CLI) | payer MEDICARE, MEDICAID ==
--- NOTE | 2018-07-28 15:39 | RADIOLOGY REPORT (SQ) ---
EXAM DESCRIPTION: CHEST 2 VIEWS COMPLETED DATE/TIME: 07/28/2018 3:29 pm REASON FOR STUDY: J06.9 ACUTE UPPER RESPIRATORY INFECTION COMPARISON: 07/19/2017. EXAM PARAMETERS: NUMBER OF VIEWS: two views TECHNIQUE: Digital Frontal and Lateral radiographic views of the chest acquired. RADIATION DOSE: NA LIMITATIONS: none FINDINGS: LUNGS AND PLEURA: No opacities, masses or pneumothorax. No pleural effusion. MEDIASTINUM AND HILAR STRUCTURES: No masses or contour abnormalities. HEART AND VASCULAR STRUCTURES: Heart normal size. No evidence for failure. BONES: No acute findings. HARDWARE: None in the chest. OTHER: No other significant finding. IMPRESSION: NO ACUTE RADIOGRAPHIC FINDING IN THE CHEST. TECHNICAL DOCUMENTATION: JOB ID: [id number] [email or web address]- All Rights Reserved Reading location - IP/workstation name: [email or web address]
== END ==
LOC: RAD 15:06
PROVIDERS: ATTEND Internal Medicine Geriatric Medicine
DX: J06.9 Acute upper respiratory infection, unspecified (principal)
CPT/HCPCS: 71046

== ENCOUNTER 2019-01-19 19:58 | Emergency (ER) | payer MEDICARE, MEDICAID ==
--- NOTE | 2019-01-19 20:52 | ER Document Report ---
ED Medical Screen (RME) - General Chief Complaint: Skin Sore(s) Stated Complaint: SKIN ISSUE Time Seen by Provider: 01/19/19 20:47 Primary Care Provider: EMI MARTINEZ MD [Primary Care Provider] - Follow up as needed Notes: 73-year-old female, chief complaint of developing sores that are bleeding on the buttocks/sacral area. Daughter is with the patient, patient has progressively worse dementia and they are having increased difficulty caring for the patient. No fever, vomiting, lack of eating, or other reported symptoms at this time. No acute change in mental status reported. TRAVEL OUTSIDE OF THE [place] IN LAST 30 DAYS: No COUNTRY TRAVELED TO/FROM: [facility] - Related Data Allergies/Adverse Reactions: No Known Allergies Allergy (Verified 07/19/17 10:20) Past Medical History - Past Medical History Cardiac Medical History: Reports: Hx Hypertension - Hx of, no meds ever Denies: Hx Heart Attack Pulmonary Medical History: Reports: Hx Bronchitis, Hx COPD Denies: Hx Asthma, Hx Pneumonia Neurological Medical History: Denies: Hx Seizures Renal/ Medical History: Denies: Hx Peritoneal Dialysis GI Medical History: Reports: Hx Gastroesophageal Reflux Disease Musculoskeltal Medical History: Reports Hx Arthritis - hands, Comment Only Hx Muscle Weakness - From progressive ataxia slurred speech and decreased use of lower extremiti Psychiatric Medical History: Reports: Hx Dementia Infectious Medical History: Past Surgical History: Reports: Hx Hysterectomy, Hx Orthopedic Surgery - L foot; R ankle - Immunizations Immunizations up to date: No Hx Diphtheria, Pertussis, Tetanus Vaccination: Yes Physical Exam - Vital signs Vitals: Temp Pulse Resp BP Pulse Ox 98.2 F 93 20 136/80 H 99 01/19/19 20:17 01/19/19 20:17 01/19/19 20:17 01/19/19 20:17 01/19/19 20:17 - Cardiovascular Rhythm: Regular. No: Tachycardia Heart sounds: Normal auscultation, S1 appreciated, S2 appreciated - Neurological Orientation: Disoriented to place, Disoriented to time, Disoriented to events Candice Coma Scale Eye Opening: Spontaneous Candice Coma Scale Verbal: Confused Hillman Coma Scale Motor: Obeys Commands Hillman Coma Scale Total: 14 Course - Re-evaluation Re-evalutation: Reportedly patient was on Risperdal, was having difficulty urinating, as result chemistry and urine were placed. She was just taken off the Risperdal today when she saw her primary provider Dr. Martinez. I have greeted and performed a rapid initial assessment of this patient. A comprehensive ED assessment and evaluation of the patient, analysis of test results and completion of the medical decision making process will be conducted by additional ED providers. - Vital Signs Vital signs: Temp Pulse Resp BP Pulse Ox 98.2 F 93 20 136/80 H 99 01/19/19 20:17 01/19/19 20:17 01/19/19 20:17 01/19/19 20:17 01/19/19 20:17 Doctor's Discharge - Discharge Referrals: EMI MARTINEZ MD [Primary Care Provider] - Follow up as needed
[2019-01-19 22:17] LABS: ABSOLUTE EOSINOPHILS # (AUTO) 0.1 10^3/uL (0.0-0.6); ABSOLUTE LYMPHOCYTES (AUTO) 1.9 10^3/uL (0.5-4.7); ABSOLUTE MONOCYTES (AUTO) 0.9 10^3/uL (0.1-1.4); ABSOLUTE NEUT (AUTO) 7.9 10^3/uL (1.7-8.2); BASOPHILS % (AUTO) 0.4 % (0-2); EOSINOPHILS % (AUTO) 1.2 % (0-6); HEMATOCRIT 41.7 % (36.0-47.0); HEMOGLOBIN 14.2 g/dL (12.0-15.5); LYMPHOCYTES % (AUTO) 17.8 % (13-45); MEAN CORPUSCULAR HGB CONC 33.9 g/dL (32.0-36.0); MEAN CORPUSCULAR VOLUME 94 fl (80-97); PLATELET COUNT 205 10^3/uL (150-450); RED BLOOD COUNT 4.42 10^6/uL (3.72-5.28); RED CELL DISTRIBUTION WIDTH 13.4 % (11.5-14.0); SEGMENTED NEUTROPHILS % (AUTO) 72.6 % (42-78); TOTAL CELLS COUNTED % (AUTO) 100 %; WHITE BLOOD COUNT 10.9 10^3/uL (4.0-10.5)
[2019-01-19 22:35] LABS: ANION GAP 10 (5-19); BLOOD UREA NITROGEN 24 mg/dL (7-20); CALCIUM 9.9 mg/dL (8.4-10.2); CARBON DIOXIDE 28 mmol/L (22-30); CHLORIDE 103 mmol/L (98-107); GLUCOSE 104 mg/dL (75-110); POTASSIUM 4.2 mmol/L (3.6-5.0); SODIUM 141.3 mmol/L (137-145)
--- NOTE | 2019-01-19 23:09 | ER Document Report ---
ED General - General Chief Complaint: Skin Sore(s) Stated Complaint: SKIN ISSUE Time Seen by Provider: 01/19/19 20:47 Primary Care Provider: EMI MARTINEZ MD [Primary Care Provider] - Follow up as needed TRAVEL OUTSIDE OF THE [place] IN LAST 30 DAYS: No COUNTRY TRAVELED TO/FROM: [facility] - [facility] Notes: Patient is a 73-year-old female that presents to the emergency department for chief complaint of bedsores and dementia. Patient's family states that she has had progression of her dementia and is becoming more difficult to manage at home. She does have home health that comes every morning and evening. She lives at home with her daughter. Patient is currently at her baseline dementia. She is oriented to person only. Family is also concerned of bedsores on her sacrum. She is wheelchair-bound and does not ambulate ever. Patient has no complaints. She denies any pain fevers or recent illness. She denies any nausea, chest pain or shortness of breath. Past Medical History: Dementia Past Surgical History: Reviewed in chart Social History: Lives with daughter, no tobacco or alcohol use Family History: Reviewed and noncontributory for presenting illness Allergies: Reviewed, see documented allergy list. REVIEW OF SYSTEMS: CONSTITUTIONAL : No fever No chills No diaphoresis No recent illness EENT: No vision changes No congestion No sore throat CARDIOVASCULAR: No chest pain No palpitations RESPIRATORY: No shortness of breath No cough No difficulty breathing GASTROINTESTINAL: No abdominal pain No nausea No vomiting No diarrhea GENITOURINARY: No dysuria No hematuria No difficulty urinating MUSCULOSKELETAL: No back pain No leg pain No arm pain SKIN: No rashes Sacral sores LYMPHATIC: No swollen, enlarged glands. NEUROLOGICAL: No lightheadedness No headache No weakness No paresthesias PSYCHIATRIC: No anxiety No depression PHYSICAL EXAMINATION: Vital signs reviewed, nursing noted reviewed. GENERAL: Well-appearing, well-nourished and in no acute distress. HEAD: Atraumatic, normocephalic. EYES: Eyes appear normal, extraocular movements intact, sclera anicteric, con junctiva are normal. ENT: nares patent, oropharynx clear without exudates. Moist mucous membranes. NECK: Normal range of motion, supple without lymphadenopathy LUNGS: Breath sounds clear to auscultation bilaterally and equal. No wheezes rales or rhonchi. HEART: Regular rate and rhythm without murmurs ABDOMEN: Soft, nontender, normoactive bowel sounds. No rebound, guarding, or rigidity. No masses appreciated. EXTREMITIES: Nontender, good range of motion. +2 pitting edema bilateral lower extremity, symmetric. NEUROLOGICAL: Oriented to person only. Decreased strength in lower extremities bilaterally. Normal sensory evaluation. PSYCH: Normal mood, normal affect. Cooperative SKIN: Warm, Dry, normal turgor. Left lateral heel ulcer that is erythematous with small intact blister and no active bleeding or drainage. Left heel is tender to palpation. Sacral stage I and II ulcers with trace bleeding. - Related Data Allergies/Adverse Reactions: No Known Allergies Allergy (Verified 07/19/17 10:20) Past Medical History - Social History Smoking Status: Never Smoker Chew tobacco use (# tins/day): No Frequency of alcohol use: None Drug Abuse: None Family History: None, Reviewed & Not Pertinent Patient has suicidal ideation: No Patient has homicidal ideation: No - Past Medical History Cardiac Medical History: Reports: Hx Hypertension - Hx of, no meds ever Denies: Hx Heart Attack Pulmonary Medical History: Reports: Hx Bronchitis, Hx COPD Denies: Hx Asthma, Hx Pneumonia Neurological Medical History: Denies: Hx Seizures Renal/ Medical History: Denies: Hx Peritoneal Dialysis GI Medical History: Reports: Hx Gastroesophageal Reflux Disease Musculoskeletal Medical History: Reports Hx Arthritis - hands, Comment Only Hx Muscle Weakness - From progressive ataxia slurred speech and decreased use of lower extremiti Psychiatric Medical History: Reports: Hx Dementia Infectious Medical History: Past Surgical History: Reports: Hx Hysterectomy, Hx Orthopedic Surgery - L foot; R ankle - Immunizations Immunizations up to date: No Hx Diphtheria, Pertussis, Tetanus Vaccination: Yes Hx Pneumococcal Vaccination: 07/29/13 Physical Exam - Vital signs Vitals: Temp Pulse Resp BP Pulse Ox 98.2 F 93 20 136/80 H 99 01/19/19 20:17 01/19/19 20:17 01/19/19 20:17 01/19/19 20:17 01/19/19 20:17 Course - Re-evaluation Re-evalutation: 01/19/19 23:45 Vitals reviewed. Nursing notes reviewed. Patient has unremarkable lab work. She is at her baseline mental status. Her daughter is not present at bedside and states that her dementia has made it more difficult for her to care for her. Daughter states that she is the primary caregiver and they do not actually have home health. Daughter states that she would like advice on how to change patient's wounds and resources on how to get her set up with home health or to a snf facility. Patient does have a immigration case manager which daughter has been working with. Daughter does feel comfortable with her going home today and since patient is hemodynamically stable and at her baseline mental status I feel she is safe for discharge. Her wounds were cleaned and dressed in nursing showed patient's daughter how to care for patient's wounds. She does have a wound management appointment on January 28 which she will keep. Patient's information will be passed off to social work here for assistance tomorrow. Patient's family was counseled on return precautions as well as following with the primary care doctor in immigration case manager to continue working on home health and/or snf placement. Patient stable for discharge. Laboratory 01/19/19 01/19/19 22:00 22:00 WBC 10.9 H RBC 4.42 Hgb 14.2 Hct 41.7 MCV 94 MCH 32.0 MCHC 33.9 RDW 13.4 Plt Count 205 Seg Neutrophils % 72.6 Lymphocytes % 17.8 Monocytes % 8.0 Eosinophils % 1.2 Basophils % 0.4 Absolute Neutrophils 7.9 Absolute Lymphocytes 1.9 Absolute Monocytes 0.9 Absolute Eosinophils 0.1 Absolute Basophils 0.0 Sodium 141.3 Potassium 4.2 Chloride 103 Carbon Dioxide 28 Anion Gap 10 BUN 24 H Creatinine 0.49 L Est GFR ( Amer) > 60 Est GFR (Non-Af Amer) > 60 Glucose 104 Calcium 9.9 - Vital Signs Vital signs: Temp Pulse Resp BP Pulse Ox 98.2 F 93 20 136/80 H 99 01/19/19 20:17 01/19/19 20:17 01/19/19 20:17 01/19/19 20:17 01/19/19 20:17 - Laboratory Result Diagrams: 01/19/19 22:00 01/19/19 22:00 Laboratory results interpreted by me: 01/19/19 01/19/19 22:00 22:00 WBC 10.9 H BUN 24 H Creatinine 0.49 L Discharge - Discharge Clinical Impression: Sacral decubitus ulcer, stage II Ulcer of left heel Qualifiers: Non-pressure ulcer stage: limited to breakdown of skin Qualified Code(s): L97.421 - Non-pressure chronic ulcer of left heel and midfoot limited to breakdown of skin Condition: Stable Disposition: HOME, SELF-CARE Instructions: Dressing Instructions for Open Wounds ([facility]) Additional Instructions: Please return to the emergency department if you have any worsening, or concern of your symptoms. Please return to the emergency department if you develop fevers, chest pain, difficulty breathing, severe abdominal pain, or ongoing vomiting. Please follow-up with your primary care physician in 2-3 days and any other recommended physicians. If prescribed, take all medications as directed. If you have any questions or concerns do not hesitate to return the emergency department for evaluation. Referrals: EMI MARTINEZ MD [Primary Care Provider] - Follow up in 3-5 days
[2019-01-20 00:49] VITALS: BP 139/69
== END 2019-01-20 00:49 | disposition home or self-care (01) ==
LOC: ER 19:58
DX: L89.152 Pressure ulcer of sacral region, stage 2 (principal); L97.421 Non-pressure chronic ulcer of left heel and midfoot limited to breakdown of skin; F03.90 Unspecified dementia, unspecified severity, without behavioral disturbance, psychotic disturbance, mood disturbance, and anxiety; Z90.710 Acquired absence of both cervix and uterus
CPT/HCPCS: 36415; 80048; 85025; 99283

== ENCOUNTER 2019-02-16 06:04 | Inpatient (IN) | payer MEDICARE, MEDICAID ==
--- NOTE | 2019-02-16 06:19 | ER Document Report ---
ED General - General Stated Complaint: STOMACH PAIN Time Seen by Provider: 02/16/19 06:14 Primary Care Provider: EMI MARTINEZ MD [ACTIVE STAFF] - Follow up as needed TRAVEL OUTSIDE OF THE [place] IN LAST 30 DAYS: No COUNTRY TRAVELED TO/FROM: [facility] - HPI Notes: Patient is a 73-year-old female with dementia that presents to the emergency department for chief complaint of shortness of breath. Patient lives with her daughter who called EMS this morning when she found her mother on an albuterol breathing treatment appearing significantly short of breath. Daughter told EMS that she has had a cough and increased requirement of her albuterol over the last 2 days. Patient states she is here because she has an IV in her arm and is not able to provide any further HPI. Daughter is not currently present which limits HPI as well. Patient is denying any pain currently. Patient did receive DuoNeb, 2 albuterol's, and 125 mg Solu-Medrol by EMS prior to arrival and states she is feeling better. Past Medical History: COPD, dementia Past Surgical History: Reviewed in chart Social History: Reviewed in chart Family History: Reviewed and noncontributory for presenting illness Allergies: Reviewed, see documented allergy list. REVIEW OF SYSTEMS: Unable to obtain because of patient's dementia PHYSICAL EXAMINATION: Vital signs reviewed, nursing noted reviewed. GENERAL: Well-appearing, well-nourished and in no acute distress. HEAD: Atraumatic, normocephalic. EYES: Eyes appear normal, extraocular movements intact, sclera anicteric, conjunctiva are normal. ENT: nares patent, oropharynx clear without exudates. Moist mucous membranes. NECK: Normal range of motion, supple without lymphadenopathy LUNGS: Breath sounds wheezy to auscultation bilaterally and equal. Tachypneic without accessory muscle use. Speaking in full sentences. HEART: Tachycardic rate and regular rhythm without murmurs ABDOMEN: Soft, nontender, normoactive bowel sounds. No rebound, guarding, or rigidity. No masses appreciated. EXTREMITIES: Nontender, good range of motion, no pitting or edema. NEUROLOGICAL: Oriented to person and place. Disoriented to time and situation. bilateral lower extremity paralysis and decreases sensation PSYCH: Normal mood, normal affect. SKIN: Warm, Dry, normal turgor, bilateral heel pressure ulcers - Related Data Allergies/Adverse Reactions: No Known Allergies Allergy (Verified 07/19/17 10:20) Past Medical History - Social History Smoking Status: Former Smoker Family History: None, Reviewed & Not Pertinent - Past Medical History Cardiac Medical History: Reports: Hx Hypertension - Hx of, no meds ever Denies: Hx Heart Attack Pulmonary Medical History: Reports: Hx Bronchitis, Hx COPD Denies: Hx Asthma, Hx Pneumonia Neurological Medical History: Denies: Hx Seizures Renal/ Medical History: Denies: Hx Peritoneal Dialysis GI Medical History: Reports: Hx Gastroesophageal Reflux Disease Musculoskeletal Medical History: Reports Hx Arthritis - hands, Comment Only Hx Muscle Weakness - From progressive ataxia slurred speech and decreased use of lower extremiti Psychiatric Medical History: Reports: Hx Dementia Infectious Medical History: Past Surgical History: Reports: Hx Hysterectomy, Hx Orthopedic Surgery - L foot; R ankle - Immunizations Immunizations up to date: No Hx Diphtheria, Pertussis, Tetanus Vaccination: Yes Hx Pneumococcal Vaccination: 07/29/13 Physical Exam - Vital signs Vitals: Resp Pulse Ox 20 96 02/16/19 06:07 02/16/19 06:07 Course - Re-evaluation Re-evalutation: 02/16/19 06:18 Vitals reviewed. Nursing notes reviewed. Patient did want albuterol treatment at home and received 2 by EMS as well as 1 Atrovent and 125 mg of Solu-Medrol. She is tachycardic on presentation but in no respiratory distress. She does states she is feeling better although she can provide very little history. Patient placed on telemetry monitoring. EMS reported her daughter was in route. 02/16/19 06:53 Patient's daughter is now at bedside. She states that around 445 this morning her mother was calling for help and she went in the room and found her very dyspneic. She states she was also grasping her abdomen saying that she had abdominal pain. Patient has been having issues with constipation and has not had regular bowel movements in the last few weeks. Patient's daughter states that she does have dementia and gets very aggressive with her at home. She has only been able to get one albuterol treatment per day if that for her mother COPD because the patient refuses the medications. Patient has not had fevers or vomiting. ABG shows hypoxia despite patient satting at 91 on the monitor, she was started on 2 L nasal cannula oxygen. Her current O2 sat is 97%. 02/16/19 07:39 Patient's x-ray shows no focal pneumonia however she does have a cough with leukocytosis and elevated lactic acid. I am clinically concerned for community- acquired pneumonia causing COPD exacerbation and early sepsis. Patient has been started on IV fluids and IV Levaquin. Her KUB shows nonobstructive bowel gas pattern and abdominal exam is soft and benign. Patient will be admitted to the hospital for further care. Chest X-Ray 02/16/19 06:14 IMPRESSION: Mild interstitial markings. Differential diagnosis includes pulmonary edema, atypical pneumonitis, and chronic interstitial lung disease. KUB X-Ray 02/16/19 06:53 IMPRESSION: Mild, nonspecific gaseous distention of the intestines. copyright 2011 [employer]- All Rights Reserved Laboratory 02/16/19 02/16/19 02/16/19 06:15 06:15 06:15 WBC 14.0 H RBC 4.41 Hgb 13.9 Hct 41.4 MCV 94 MCH 31.5 MCHC 33.5 RDW 13.4 Plt Count 229 Seg Neutrophils % 72.1 Lymphocytes % 20.6 Monocytes % 5.9 Eosinophils % 1.0 Basophils % 0.4 Absolute Neutrophils 10.1 H Absolute Lymphocytes 2.9 Absolute Monocytes 0.8 Absolute Eosinophils 0.1 Absolute Basophils 0.1 Carbonic Acid HCO3/H2CO3 Ratio ABG pH ABG pCO2 ABG pO2 ABG HCO3 ABG Total CO2 ABG O2 Saturation ABG Base Excess FiO2 Sodium 140.8 Potassium 4.3 Chloride 101 Carbon Dioxide 28 Anion Gap 12 BUN 22 H Creatinine 0.62 Est GFR ( Amer) > 60 Est GFR (Non-Af Amer) > 60 Glucose 158 H Lactic Acid Calcium 9.7 Total Bilirubin 0.7 Direct Bilirubin 0.5 H Neonat Total Bilirubin Not Reportable Neonat Direct Bilirubin Not Reportable Neonat Indirect Bili Not Reportable AST 107 H ALT 71 H Alkaline Phosphatase 227 H Troponin I < 0.012 Total Protein 7.8 Albumin 4.3 02/16/19 02/16/19 06:15 06:15 WBC RBC Hgb Hct MCV MCH MCHC RDW Plt Count Seg Neutrophils % Lymphocytes % Monocytes % Eosinophils % Basophils % Absolute Neutrophils Absolute Lymphocytes Absolute Monocytes Absolute Eosinophils Absolute Basophils Carbonic Acid 1.04 L HCO3/H2CO3 Ratio 23:1 ABG pH 7.46 H ABG pCO2 34.6 L ABG pO2 62.5 L ABG HCO3 24.2 H ABG Total CO2 25.2 H ABG O2 Saturation 93.3 L ABG Base Excess 0.9 FiO2 ROOM AIR Sodium Potassium Chloride Carbon Dioxide Anion Gap BUN Creatinine Est GFR ( Amer) Est GFR (Non-Af Amer) Glucose Lactic Acid 2.6 H Calcium Total Bilirubin Direct Bilirubin Neonat Total Bilirubin Neonat Direct Bilirubin Neonat Indirect Bili AST ALT Alkaline Phosphatase Troponin I Total Protein Albumin 02/16/19 08:53 Patient's daughter states that she was in the process of establishing care with Dr. Lennon and did have an appointment today. She does not wish for patient to be under the care of Dr. Martinez. Patient's care was discussed with Dr. Delcid who accepts admission - Vital Signs Vital signs: Temp Pulse Resp BP Pulse Ox 17 123/72 95 02/16/19 08:01 02/16/19 08:01 02/16/19 08:01 - Laboratory Result Diagrams: 02/16/19 06:15 02/16/19 06:15 Laboratory results interpreted by me: 02/16/19 02/16/19 02/16/19 06:15 06:15 06:15 WBC 14.0 H Absolute Neutrophils 10.1 H Carbonic Acid 1.04 L ABG pH 7.46 H ABG pCO2 34.6 L ABG pO2 62.5 L ABG HCO3 24.2 H ABG Total CO2 25.2 H ABG O2 Saturation 93.3 L BUN 22 H Glucose 158 H Lactic Acid Direct Bilirubin 0.5 H AST 107 H ALT 71 H Alkaline Phosphatase 227 H Urine Urobilinogen 02/16/19 02/16/19 06:15 07:45 WBC Absolute Neutrophils Carbonic Acid ABG pH ABG pCO2 ABG pO2 ABG HCO3 ABG Total CO2 ABG O2 Saturation BUN Glucose Lactic Acid 2.6 H Direct Bilirubin AST ALT Alkaline Phosphatase Urine Urobilinogen 2.0 H - EKG Interpretation by Me Additional EKG results interpreted by me: 02/16/19 06:18 Interpreted by myself [id number]: Sinus tachycardia, rate 119, normal axis, no ectopy, no STEMI Discharge - Discharge Clinical Impression: COPD exacerbation, Hypoxemia Community acquired pneumonia Qualifiers: Laterality: unspecified laterality Qualified Code(s): J18.9 - Pneumonia, unspecified organism Sepsis Qualifiers: Sepsis type: sepsis due to unspecified organism Qualified Code(s): A41.9 - Sepsis, unspecified organism Condition: Stable Disposition: ADMITTED INPATIENT Admitting Provider: Farhana (Hospitalist) Unit Admitted: Telemetry
[2019-02-16 06:36] LABS: ABSOLUTE BASOPHILS # (AUTO) 0.1 10^3/uL (0.0-0.2); ABSOLUTE EOSINOPHILS # (AUTO) 0.1 10^3/uL (0.0-0.6); ABSOLUTE LYMPHOCYTES (AUTO) 2.9 10^3/uL (0.5-4.7); ABSOLUTE MONOCYTES (AUTO) 0.8 10^3/uL (0.1-1.4); ABSOLUTE NEUT (AUTO) 10.1 10^3/uL (1.7-8.2); ARTERIAL BLOOD BASE EXCESS 0.9 mmol/L; ARTERIAL BLOOD H2CO3 1.04 mmol/L (1.05-1.35); ARTERIAL BLOOD HCO3 24.2 mmol/L (20-24); ARTERIAL BLOOD O2 SATURATION 93.3 % (94-98); ARTERIAL BLOOD PCO2 34.6 mmHg (35-45); ARTERIAL BLOOD PH 7.46 (7.35-7.45); ARTERIAL BLOOD PO2 62.5 mmHg (80-100); ARTERIAL BLOOD TOTAL CO2 25.2 mmol/L (21-25); BASOPHILS % (AUTO) 0.4 % (0-2); HEMATOCRIT 41.4 % (36.0-47.0); HEMOGLOBIN 13.9 g/dL (12.0-15.5); LYMPHOCYTES % (AUTO) 20.6 % (13-45); MEAN CORPUSCULAR HEMOGLOBIN 31.5 pg (27.0-33.4); MEAN CORPUSCULAR HGB CONC 33.5 g/dL (32.0-36.0); MEAN CORPUSCULAR VOLUME 94 fl (80-97); MONOCYTES % (AUTO) 5.9 % (3-13); PLATELET COUNT 229 10^3/uL (150-450); RED BLOOD COUNT 4.41 10^6/uL (3.72-5.28); RED CELL DISTRIBUTION WIDTH 13.4 % (11.5-14.0); SEGMENTED NEUTROPHILS % (AUTO) 72.1 % (42-78); TOTAL CELLS COUNTED % (AUTO) 100 %
[2019-02-16 06:39] LABS: ARTERIAL BLOOD FIO2 ROOM AIR
[2019-02-16 06:55] LABS: ALANINE AMINOTRANSFERASE 71 U/L (9-52); ALBUMIN 4.3 g/dL (3.5-5.0); ALKALINE PHOSPHATASE 227 U/L (38-126); ANION GAP 12 (5-19); ASPARTATE AMINO TRANSFERASE 107 U/L (14-36); BLOOD UREA NITROGEN 22 mg/dL (7-20); CALCIUM 9.7 mg/dL (8.4-10.2); CARBON DIOXIDE 28 mmol/L (22-30); CHLORIDE 101 mmol/L (98-107); POTASSIUM 4.3 mmol/L (3.6-5.0); SODIUM 140.8 mmol/L (137-145); TOTAL PROTEIN 7.8 g/dL (6.3-8.2)
--- NOTE | 2019-02-16 06:55 | RADIOLOGY REPORT (SQ) ---
EXAM DESCRIPTION: XR CHEST 1 VIEW COMPLETED DATE/TME: 02/16/2019 06:14 CLINICAL HISTORY: 73 years Female, shortness of breath COMPARISON:07/28/2018 NUMBER OF VIEWS/TECHNIQUE: 1/AP FINDINGS: Mild interstitial markings. Atherosclerotic vascular disease. Adequate lung volume, normal cardiac silhouette, and intact bony thorax. IMPRESSION: Mild interstitial markings. Differential diagnosis includes pulmonary edema, atypical pneumonitis, and chronic interstitial lung disease.
[2019-02-16 06:56] LABS: GLUCOSE 158 mg/dL (75-110)
[2019-02-16 06:59] LABS: BILIRUBIN,TOTAL 0.7 mg/dL (0.2-1.3)
[2019-02-16] MEDS ORDERED: LEVOFLOXACIN 750 MG/D5W RTU 750 MG/150 ML RTUPB IV ONE (07:07)
[2019-02-16 07:21] LABS: BILIRUBIN,DIRECT 0.5 mg/dL (0.0-0.4)
[2019-02-16] MEDS ORDERED: RINGERS SOLUTION,LACTATED 1,000 ML IV ONE (07:35)
--- NOTE | 2019-02-16 07:35 | RADIOLOGY REPORT (SQ) ---
EXAM DESCRIPTION: XR ABDOMEN 1 VIEW (KUB) COMPLETED DATE/TME: 02/16/2019 06:53 CLINICAL HISTORY: 73 years, Female, constipated COMPARISON: None. NUMBER OF VIEWS: One TECHNIQUE: AP view of the abdomen LIMITATIONS: None. FINDINGS: There is gaseous distention of the stomach. No dilated loops of small bowel are identified. There is mild, nonspecific gaseous distention of the intestines. There is a moderate amount of stool within the colon particularly on the right. There are no abnormal calcifications. No acute fractures identified. IMPRESSION: Mild, nonspecific gaseous distention of the intestines. copyright 2010 [employer]- All Rights Reserved
[2019-02-16 08:06] LABS: APPEARANCE,URINE CLOUDY; BILIRUBIN,URINE NEGATIVE (NEGATIVE); GLUCOSE, URINE NEGATIVE (NEGATIVE); KETONES,URINE NEGATIVE (NEGATIVE); LEUKOCYTE ESTERASE,URINE NEGATIVE (NEGATIVE); NITRITE,URINE NEGATIVE (NEGATIVE); PROTEIN,URINE NEGATIVE (NEGATIVE); URINE SPECIFIC GRAVITY 1.024
[2019-02-16 08:08] LABS: COLOR,URINE DARK YELLOW
[2019-02-16] MEDS ORDERED: HALOPERIDOL LACTATE INJ 5 MG/1 ML VIAL IV ONE (09:13)
[2019-02-16] MEDS ORDERED: ONDANSETRON HCL INJ/PF 4 MG/2 ML SDV IV PRN (10:30)
[2019-02-16] MEDS ORDERED: ACETAMINOPHEN 325 MG TABLET PO PRN (10:30)
[2019-02-16] MEDS ORDERED: PROMETHAZINE HCL INJ 25 MG/1 ML VIAL IV PRN (10:30)
[2019-02-16] MEDS ORDERED: TEMAZEPAM 7.5 MG CAPSULE PO PRN (10:30)
[2019-02-16] MEDS ORDERED: DEXTROSE 5%-NORMAL SALINE 1,000 ML IV PRN ×2 (10:30→12:42)
[2019-02-16] MEDS ORDERED: OXYCODONE-ACETAMINOPHEN 5-325 MG TABLET PO PRN (10:30)
[2019-02-16 11:54] LABS: FREE T3 4.29 pg/mL (2.77-5.27)
[2019-02-16 11:55] LABS: FREE T4 (FREE THYROXINE) 1.28 ng/dL (0.78-2.19)
[2019-02-16 12:08] LABS: THYROID STIMULATING HORMONE 2.88 uIU/mL (0.47-4.68)
--- NOTE | 2019-02-16 13:06 | PDOC H&P ---
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 Due to patient's profound dementia source of history is primary caregiver Ms. Susan Quan, her daughter whom the patient is living with for the last 9 years. As per daughter last night around 4:56 AM patient woke up and was complaining of shortness of breath, feeling hot, asking daughter help, complaining of stomach pain. As per daughter patient's complaints are not very nonspecific due to her profound dementia. In ED she was found to have an SPO2 of 82, RR 24, pH 7.46, PCO2 34.6, PO2 62.5, lactic acid of 2.6-3.6 WBC of 14,000 with no bandemia. Patient was started on empiric IV antibiotics and hospitalist consulted for admission. Per daughter cerebral ataxia runs in the family, several family members have been affected, and her mother has been wheelchair-bound for the last 35 years. Mother also tends to hallucinate, get physically aggressive, and suffers from sundowning. Due to terminal advance and nonreversible neurological disorder daughter would like to make patient DNR/DNI and transition her to home hospice after her pneumonia is being treated. She is awake, alert, pleasant, only oriented to self, follows some commands, does not communicate any symptoms. Past Medical History Cardiac Medical History: Reports: Hypertension - Hx of, no meds ever Denies: Myocardial Infarction Pulmonary Medical History: Reports: Bronchitis, Chronic Obstructive Pulmonary Disease (COPD) Denies: Asthma, Pneumonia Neurological Medical History: Denies: Seizures GI Medical History: Reports: Gastroesophageal Reflux Disease Musculoskeltal Medical History: Reports: Arthritis - hands Psychiatric Medical History: Reports: Dementia Hematology: Reports: Anemia - as toddler only Past Surgical History Past Surgical History: Reports: Hysterectomy, Orthopedic Surgery - L foot; R ankle Social History Smoking Status: Former Smoker Frequency of Alcohol Use: None Hx Recreational Drug Use: No Family History Family History: None, Reviewed & Not Pertinent Parental Family History Reviewed: Yes - Lewy body dementia, cerebellar ataxia, Children Family History Reviewed: Yes - Cerebellar ataxia Sibling(s) Family History Reviewed.: Yes Medication/Allergy Home Medications: Acetaminophen [Tylenol Arthritis] 650 mg PO Q8HP PRN 02/16/19 Albuterol Sulfate [Ventolin 0.083% Neb 2.5 mg/3 ml Ampul] 1 vial NEB RTQ6HP PRN 02/16/19 Budesonide [Pulmicort Neb 0.5 mg/2 ml Ampul] 0.5 mg NEB RTQ6HP PRN 02/16/19 Collagenase Clostridium Hist. [Santyl Ointment 30 gm] 1 applic TOP DAILY 02/16/19 Docusate Sodium [Colace 100 mg/10 ml Oral Soln] 100 mg PO DAILY 02/16/19 Losartan Potassium [Cozaar 25 mg Tablet] 25 mg PO DAILY 02/16/19 Quetiapine Fumarate [Seroquel 25 mg Tablet] 25 mg PO BID 02/16/19 Allergies/Adverse Reactions: No Known Allergies Allergy (Verified 02/16/19 09:58) Review of Systems ROS unobtainable: Due to mental status Physical Exam Vital Signs: Temp Pulse Resp BP Pulse Ox 98.4 F 24 H 127/107 H 94 02/16/19 09:30 02/16/19 09:01 02/16/19 09:01 02/16/19 09:01 Intake & Output 02/15/19 02/16/19 02/17/19 06:59 06:59 06:59 Intake Total 150 Output Total 500 Balance -350 Weight 84 kg General appearance: PRESENT: no acute distress, well-developed, well-nourished Head exam: PRESENT: atraumatic, normocephalic Respiratory exam: PRESENT: clear to auscultation renu. ABSENT: rales, rhonchi, wheezes Cardiovascular exam: PRESENT: RRR. ABSENT: diastolic murmur, rubs, systolic murmur GI/Abdominal exam: PRESENT: normal bowel sounds, soft. ABSENT: distended, guarding, mass, organolmegaly, rebound, tenderness Extremities exam: PRESENT: full ROM, other - Lateral lower extremity contractures, with bilateral calcaneus pressure sores. Stage III.. ABSENT: calf tenderness, clubbing, pedal edema Neurological exam: PRESENT: alert, awake, oriented to person, ataxia, CN II-XII grossly intact Results Laboratory Results: 02/16/19 06:15 02/16/19 06:15 02/16/19 02/16/19 02/16/19 06:15 06:15 06:15 WBC 14.0 H RBC 4.41 Hgb 13.9 Hct 41.4 MCV 94 MCH 31.5 MCHC 33.5 RDW 13.4 Plt Count 229 Seg Neutrophils % 72.1 Lymphocytes % 20.6 Monocytes % 5.9 Eosinophils % 1.0 Basophils % 0.4 Absolute Neutrophils 10.1 H Absolute Lymphocytes 2.9 Absolute Monocytes 0.8 Absolute Eosinophils 0.1 Absolute Basophils 0.1 Carbonic Acid 1.04 L HCO3/H2CO3 Ratio 23:1 ABG pH 7.46 H ABG pCO2 34.6 L ABG pO2 62.5 L ABG HCO3 24.2 H ABG O2 Saturation 93.3 L ABG Base Excess 0.9 FiO2 ROOM AIR Sodium 140.8 Potassium 4.3 Chloride 101 Carbon Dioxide 28 Anion Gap 12 BUN 22 H Creatinine 0.62 Est GFR ( Amer) > 60 Est GFR (Non-Af Amer) > 60 Glucose 158 H Lactic Acid Calcium 9.7 Total Bilirubin 0.7 AST 107 H ALT 71 H Alkaline Phosphatase 227 H Total Protein 7.8 Albumin 4.3 Lipase TSH Free T4 Free T3 pg/mL Urine Color Urine Appearance Urine pH Ur Specific Reynolds Urine Protein Urine Glucose (UA) Urine Ketones Urine Blood Urine Nitrite Ur Leukocyte Esterase Urine WBC (Auto) Urine RBC (Auto) 02/16/19 02/16/19 02/16/19 06:15 06:15 06:15 WBC RBC Hgb Hct MCV MCH MCHC RDW Plt Count Seg Neutrophils % Lymphocytes % Monocytes % Eosinophils % Basophils % Absolute Neutrophils Absolute Lymphocytes Absolute Monocytes Absolute Eosinophils Absolute Basophils Carbonic Acid HCO3/H2CO3 Ratio ABG pH ABG pCO2 ABG pO2 ABG HCO3 ABG O2 Saturation ABG Base Excess FiO2 Sodium Potassium Chloride Carbon Dioxide Anion Gap BUN Creatinine Est GFR ( Amer) Est GFR (Non-Af Amer) Glucose Lactic Acid 2.6 H Calcium Total Bilirubin AST ALT Alkaline Phosphatase Total Protein Albumin Lipase 84.7 TSH 2.88 Free T4 1.28 Free T3 pg/mL 4.29 Urine Color Urine Appearance Urine pH Ur Specific Reynolds Urine Protein Urine Glucose (UA) Urine Ketones Urine Blood Urine Nitrite Ur Leukocyte Esterase Urine WBC (Auto) Urine RBC (Auto) 02/16/19 02/16/19 07:45 11:48 WBC RBC Hgb Hct MCV MCH MCHC RDW Plt Count Seg Neutrophils % Lymphocytes % Monocytes % Eosinophils % Basophils % Absolute Neutrophils Absolute Lymphocytes Absolute Monocytes Absolute Eosinophils Absolute Basophils Carbonic Acid HCO3/H2CO3 Ratio ABG pH ABG pCO2 ABG pO2 ABG HCO3 ABG O2 Saturation ABG Base Excess FiO2 Sodium Potassium Chloride Carbon Dioxide Anion Gap BUN Creatinine Est GFR ( Amer) Est GFR (Non-Af Amer) Glucose Lactic Acid 3.6 H Calcium Total Bilirubin AST ALT Alkaline Phosphatase Total Protein Albumin Lipase TSH Free T4 Free T3 pg/mL Urine Color DARK YELLOW Urine Appearance CLOUDY Urine pH 5.0 Ur Specific Reynolds 1.024 Urine Protein NEGATIVE Urine Glucose (UA) NEGATIVE Urine Ketones NEGATIVE Urine Blood NEGATIVE Urine Nitrite NEGATIVE Ur Leukocyte Esterase NEGATIVE Urine WBC (Auto) 2 Urine RBC (Auto) 1 02/16/19 06:15 Troponin I < 0.012 Impressions: Chest X-Ray 02/16/19 06:14 IMPRESSION: Mild interstitial markings. Differential diagnosis includes pulmonary edema, atypical pneumonitis, and chronic interstitial lung disease. KUB X-Ray 02/16/19 06:53 IMPRESSION: Mild, nonspecific gaseous distention of the intestines. copyright 2010 [employer]- All Rights Reserved Assessment and Plan - Diagnosis (1) Acute respiratory failure with hypoxemia Is this a current diagnosis for this admission?: Yes Plan: Likely due to underlying COPD exacerbation and community-acquired pneumonia. Empiric IV antibiotics, duo nebs, IV steroids, BiPAP as needed, supplemental oxygen, LABA's/LAMA's. CBC, CMP, ABG tomorrow. Sputum and blood culture. (2) SIRS (systemic inflammatory response syndrome) Is this a current diagnosis for this admission?: Yes Plan: Evidenced by WBC 14.0, LA 2.63.6, RR 24, SPO2 82%, PaO2 62.5. Volume resuscitation guided by volume status, empiric IV antibiotics, blood and urine culture. (3) COPD exacerbation Is this a current diagnosis for this admission?: Yes Plan: Former heavy smoker. As per problem 1. (4) Community acquired pneumonia Qualifiers: Laterality: unspecified laterality Qualified Code(s): J18.9 - Pneumonia, unspecified organism Is this a current diagnosis for this admission?: Yes Plan: No recent history of hospitalization. Likely gram-positive including strep pneumo. As per #1. (5) Cerebellar ataxia Is this a current diagnosis for this admission?: Yes Plan: Hereditary. Several family members affected. Supportive measures, PT/OT. Monitor for falls, aspiration, seizures. (6) Advanced dementia Is this a current diagnosis for this admission?: Yes Plan: Family history of Lewy body dementia. First diagnosed in 2012. Severe sundowning and hallucinations. Restart Seroquel. Haldol as needed. (7) Hypertension Is this a current diagnosis for this admission?: Yes Plan: Restart losartan. Monitor vitals. Adjust meds as needed. Add additional meds as needed. (8) Hyperlipidemia Is this a current diagnosis for this admission?: Yes Plan: Restart home meds. (9) Chronic heel ulcer Qualifiers: Laterality: left Non-pressure ulcer stage: with fat layer exposed Qualified Code(s): L97.422 - Non-pressure chronic ulcer of left heel and midfoot with fat layer exposed Is this a current diagnosis for this admission?: Yes Plan: Patient bedbound for the last 35 years. Severe bilateral lower extremity contractures. Bilateral heel stage III pressure ulcers. Wound care. (10) Contracture of muscle of lower extremity, bilateral Is this a current diagnosis for this admission?: Yes Plan: Possibly due to neurodegenerative disorder. She has history of pituitary cerebellar ataxia. Denies any history of CVA. Supportive measures, decubitus ulcer prevention measures.
--- NOTE | 2019-02-16 13:09 | ADVANCED CARE ---
- Diagnosis (1) Acute respiratory failure with hypoxemia Diagnosis Current: Yes (2) COPD exacerbation Diagnosis Current: Yes (3) Community acquired pneumonia Diagnosis Current: Yes (4) Cerebellar ataxia Diagnosis Current: Yes (5) Advanced dementia Diagnosis Current: Yes (6) Hypertension Diagnosis Current: Yes (7) Hyperlipidemia Diagnosis Current: Yes (8) Chronic heel ulcer Diagnosis Current: Yes (9) Contracture of muscle of lower extremity, bilateral Diagnosis Current: Yes Resuscitation Status: Do Not Intubate Discussion: Extensive discussion with her daughter Ms Susan Quan whom is primary caregiver and patient living with for the last 9 years. Due to advanced, progressive, nonreversible underlying medical conditions she has daughter who has also discussed the case with her 3 other siblings would like to make patient DNR/DNI and transition to home hospice care. Care Planning Goals: DNR/DNI to be transitioned to home hospice. Patient with profound dementia and severe ataxia who is wheelchair-bound for the last 35 years. Patient's CODE STATUS will be changed to DNR/DNI and hospice will be consulted f or possible home hospice care. Ms. Davis appears home the patient has been living for the last 9 years who states that she has a guardianship of the patient however she is not the POA. Patient does not have a designated POA. Has discussed patient care with her siblings who also agree with her plan. Time Spent: 20
[2019-02-16] MEDS: IPRATROPIUM/ALBUTEROL 0.5-2.5 MG/3 ML AMPUL NEB SCH ×2 (14:13→20:38)
--- NOTE | 2019-02-16 14:58 | EKG REPORT ---
SEVERITY:- ABNORMAL ECG - SINUS TACHYCARDIA CHRISTINA, CONSIDER BIATRIAL ABNORMALITIES : Confirmed by: Piyush Mancuso 16-Feb-2019 14:56:53
[2019-02-16] MEDS: HALOPERIDOL LACTATE INJ 5 MG/1 ML VIAL IM PRN ×2 (21:18→22:37)
[2019-02-16] MEDS: FAMOTIDINE 20 MG TABLET PO SCH (21:18)
[2019-02-16] MEDS ORDERED: QUETIAPINE FUMARATE 25 MG TABLET PO SCH (22:00)
[2019-02-17] MEDS ORDERED: LORAZEPAM INJ 2 MG/1 ML VIAL IV ONE (04:00)
[2019-02-17] MEDS ORDERED: HALOPERIDOL LACTATE INJ 5 MG/1 ML VIAL IV PRN (07:42)
[2019-02-17 07:53] LABS: ABSOLUTE LYMPHOCYTES (AUTO) 1.5 10^3/uL (0.5-4.7); ABSOLUTE MONOCYTES (AUTO) 0.9 10^3/uL (0.1-1.4); ABSOLUTE NEUT (AUTO) 8.3 10^3/uL (1.7-8.2); BASOPHILS % (AUTO) 0.3 % (0-2); EOSINOPHILS % (AUTO) 0.1 % (0-6); HEMATOCRIT 34.6 % (36.0-47.0); LYMPHOCYTES % (AUTO) 13.7 % (13-45); MEAN CORPUSCULAR HEMOGLOBIN 31.3 pg (27.0-33.4); MEAN CORPUSCULAR HGB CONC 33.3 g/dL (32.0-36.0); MEAN CORPUSCULAR VOLUME 94 fl (80-97); MONOCYTES % (AUTO) 8.5 % (3-13); PLATELET COUNT 193 10^3/uL (150-450); RED BLOOD COUNT 3.69 10^6/uL (3.72-5.28); RED CELL DISTRIBUTION WIDTH 13.4 % (11.5-14.0); SEGMENTED NEUTROPHILS % (AUTO) 77.4 % (42-78); TOTAL CELLS COUNTED % (AUTO) 100 %; WHITE BLOOD COUNT 10.7 10^3/uL (4.0-10.5)
[2019-02-17 08:08] LABS: ANION GAP 7 (5-19); BLOOD UREA NITROGEN 19 mg/dL (7-20); CALCIUM 9.4 mg/dL (8.4-10.2); CARBON DIOXIDE 26 mmol/L (22-30); CHLORIDE 106 mmol/L (98-107); GLUCOSE 108 mg/dL (75-110); HEMOGLOBIN 11.5 g/dL (12.0-15.5); POTASSIUM 4.4 mmol/L (3.6-5.0); SODIUM 138.6 mmol/L (137-145)
[2019-02-17] MEDS: IPRATROPIUM/ALBUTEROL 0.5-2.5 MG/3 ML AMPUL NEB SCH ×3 (08:39→20:00)
[2019-02-17] MEDS ORDERED: DOCUSATE SODIUM 100 MG CAPSULE PO SCH (10:00)
[2019-02-17] MEDS ORDERED: CEFTRIAXONE 1 GM/D5W RTU 1 GM/50 ML RTUPB IV SCH (10:00)
[2019-02-17] MEDS ORDERED: CEFTRIAXONE SODIUM 1,000 MG in DEXTROSE 5%-WATER 50 ML IV SCH (10:00)
[2019-02-17] MEDS ORDERED: LEVOFLOXACIN 500 MG/D5W RTU 500 MG/100 ML RTUPB IV SCH (10:00)
[2019-02-17] MEDS ORDERED: ENOXAPARIN SODIUM INJ 40 MG/0.4 ML DISP.SYRIN SUBCUT SCH (10:00)
[2019-02-17] MEDS: FAMOTIDINE 20 MG TABLET PO SCH (10:08)
[2019-02-17 15:19] LABS: HEMATOCRIT 35.7 % (36.0-47.0); HEMOGLOBIN 12.1 g/dL (12.0-15.5); MEAN CORPUSCULAR HEMOGLOBIN 31.9 pg (27.0-33.4); MEAN CORPUSCULAR HGB CONC 33.8 g/dL (32.0-36.0); MEAN CORPUSCULAR VOLUME 94 fl (80-97); PLATELET COUNT 204 10^3/uL (150-450); RED BLOOD COUNT 3.79 10^6/uL (3.72-5.28); RED CELL DISTRIBUTION WIDTH 13.4 % (11.5-14.0); WHITE BLOOD COUNT 10.4 10^3/uL (4.0-10.5)
[2019-02-17 20:02] VITALS: BP 135/61
--- NOTE | 2019-02-23 10:40 | PDOC DISCHARGE SUMMARY ---
General - Admit/Disc Date/PCP Admission Date/Primary Care Provider: 02/16/19 09:34 ERIC LENNON MD Discharge Date: 02/17/19 - Discharge Diagnosis (1) Acute respiratory failure with hypoxemia Is this a current diagnosis for this admission?: Yes (2) SIRS (systemic inflammatory response syndrome) Is this a current diagnosis for this admission?: Yes (3) COPD exacerbation Is this a current diagnosis for this admission?: Yes (4) Community acquired pneumonia Is this a current diagnosis for this admission?: Yes (5) Cerebellar ataxia Is this a current diagnosis for this admission?: Yes (6) Advanced dementia Is this a current diagnosis for this admission?: Yes (7) Hypertension Is this a current diagnosis for this admission?: Yes (8) Hyperlipidemia Is this a current diagnosis for this admission?: Yes (9) Chronic heel ulcer Is this a current diagnosis for this admission?: Yes (10) Contracture of muscle of lower extremity, bilateral Is this a current diagnosis for this admission?: Yes - Additional Information Resuscitation Status: Do Not Resuscitate Discharge Diet: As Tolerated, Regular Discharge Activity: Activity As Tolerated, Balance Activity w/Rest Prescriptions: Budesonide/Formoterol Fumarate [Symbicort Hfa 160-4.5 Mcg Inhaler 6 gm] 2 puff IH Q12 30 Days #1 inhaler Haloperidol [Haldol 2 Mg Tablet] 2 mg PO Q8 PRN 7 Days #21 tablet PRN Reason: Anxiety/Agitation Levofloxacin [Levaquin] 500 mg PO DAILY 5 Days #5 tablet Quetiapine Fumarate [Seroquel 25 mg Tablet] 25 mg PO QHS 30 Days #30 tablet Quetiapine Fumarate [Seroquel] 25 mg PO QAM 30 Days #30 tablet Tiotropium Ladora [Spiriva Respimat] 4 gm IH DAILY 30 Days #1 mist.inhal Home Medications: Acetaminophen [Tylenol Arthritis] 650 mg PO Q8HP PRN 02/16/19 Albuterol Sulfate [Ventolin 0.083% Neb 2.5 mg/3 mL Ampul] 1 vial NEB RTQ6HP PRN 02/16/19 Collagenase Clostridium Hist. [Santyl Ointment 30 gm] 1 applic TOP DAILY 02/16/19 Docusate Sodium [Colace Udc 100 mg/10 ml Oral Soln] 100 mg PO DAILY 07/02/19 Losartan Potassium [Cozaar 25 mg Tablet] 25 mg PO DAILY 02/16/19 Budesonide/Formoterol Fumarate [Symbicort Hfa 160-4.5 Mcg Inhaler 6 gm] 2 puff IH Q12 30 Days #1 inhaler 02/17/19 Haloperidol [Haldol 2 Mg Tablet] 2 mg PO Q8 PRN 7 Days #21 tablet 02/17/19 Levofloxacin [Levaquin] 500 mg PO DAILY 5 Days #5 tablet 02/17/19 Quetiapine Fumarate [Seroquel 25 mg Tablet] 25 mg PO QHS 30 Days #30 tablet 02/17/19 Quetiapine Fumarate [Seroquel] 25 mg PO QAM 30 Days #30 tablet 02/17/19 Tiotropium Ladora [Spiriva Respimat] 4 gm IH DAILY 30 Days #1 mist.inhal 02/17/19 History of Present Illness History of Present Illness: CORAL WATTS is a 73 year old female past medical history of wheelchair-bound as a result of 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 Due to patient's profound dementia source of history is primary caregiver Ms. Susan Quan, her daughter whom the patient is living with for the last 9 years. As per daughter last night around 4:56 AM patient woke up and was complaining of shortness of breath, feeling hot, asking daughter help, complaining of stomach pain. As per daughter patient's complaints are not very nonspecific due to her profound dementia. In ED she was found to have an SPO2 of 82, RR 24, pH 7.46, PCO2 34.6, PO2 62.5, lactic acid of 2.6-3.6 WBC of 14,000 with no bandemia. Patient was started on empiric IV antibiotics and hospitalist consulted for admission. Per daughter cerebral ataxia runs in the family, several family members have been affected, and her mother has been wheelchair-bound for the last 35 years. Mother also tends to hallucinate, get physically aggressive, and suffers from sundowning. Due to terminal advance and nonreversible neurological disorder daughter would like to make patient DNR/DNI and transition her to home hospice after her pneumonia is being treated. She is awake, alert, pleasant, only oriented to self, follows some commands, does not communicate any symptoms. Hospital Course Hospital Course: (1) Acute respiratory failure with hypoxemia Improved. SpO2 WNL RA Likely due to underlying COPD exacerbation and community-acquired pneumonia. Sarted on empiric IV antibiotics, duo nebs, IV steroids, BiPAP as needed, supplemental oxygen, LABA's/LAMA's. Was discharged home on Levofloxacin 500 daily for another 5 days. Sputum and blood culture negative. (2) SIRS (systemic inflammatory response syndrome) Resolved. Vitals WNL Evidenced by WBC 14.0, LA 2.63.6, RR 24, SPO2 82%, PaO2 62.5. Was started on volume resuscitation guided by volume status, empiric IV antibiotics, blood and urine culture. (3) COPD exacerbation Former heavy smoker. As per problem 1. (4) Community acquired pneumonia No recent history of hospitalization. Likely gram-positive including strep pneumo. As per #1. (5) Cerebellar ataxia Hereditary. Several family members affected. Supportive measures, PT/OT. Monitor for falls, aspiration, seizures. (6) Advanced dementia Family history of Lewy body dementia. First diagnosed in 2012. Severe sundowning and hallucinations. Restarted Seroquel. Haldol as needed. Was discharged on Seroquel 25 mg bid. Asked to follow up with PCP. Patient's daughter who is the POA and her wanted to transition patient care to home hospice. Hospice was contacted and It was arranged for the patient to be discharged home and next week Hospice will contact them and transition patient care to home hospice. Please refer to discharge planning note. (7) Hypertension Restarted losartan. Monitor vitals. Adjust meds as needed. Add additional meds as needed. (8) Hyperlipidemia Restart home meds. (9) Chronic heel ulcer Patient bedbound for the last 35 years. Severe bilateral lower extremity contractures. Bilateral heel stage II pressure ulcers. Patient daughter who is the primary customer care assistant stated that patient already has established wound care as out patient. Wound cultures were obtained but sensitivities were not available on discharge. Wound cultures came back positive for Ecoli, Entercocous and MRSA. I called Labs myself to ask the send the result to Dr Lennon and ask them to contact patient. I also contacted daughter who is the POA at [phone] and informed her about the result. She stated that they had an appointment with Dr El on 02/23/2019 at 2 PM and she will make sure they discuss it. She was also informed that I have asked the Labs at [facility] to send PCP a copy of the result. She was understanding and was really appreciative. (10) Contracture of muscle of lower extremity, bilateral Possibly due to neurodegenerative disorder. She has history of pituitary cerebellar ataxia. Denies any history of CVA. Supportive measures, decubitus ulcer prevention measures. Physical Exam Vital Signs: Temp Pulse Resp BP Pulse Ox 98.1 F 95 16 135/61 H 96 02/17/19 19:32 02/17/19 20:01 02/17/19 20:01 02/17/19 19:32 02/17/19 20:01 General appearance: PRESENT: no acute distress, well-developed, well-nourished Head exam: PRESENT: atraumatic, normocephalic Respiratory exam: PRESENT: clear to auscultation renu. ABSENT: rales, rhonchi, wheezes Cardiovascular exam: PRESENT: RRR. ABSENT: diastolic murmur, rubs, systolic murmur GI/Abdominal exam: PRESENT: normal bowel sounds, soft. ABSENT: distended, guarding, mass, organolmegaly, rebound, tenderness Extremities exam: PRESENT: full ROM, other - renu heal pressure sores. ABSENT: calf tenderness, clubbing, pedal edema Neurological exam: PRESENT: alert, awake, CN II-XII grossly intact. ABSENT: motor sensory deficit Results Laboratory Results: 02/17/19 15:08 02/17/19 07:27 02/16/19 06:15 Troponin I < 0.012 Impressions: Chest X-Ray 02/16/19 06:14 IMPRESSION: Mild interstitial markings. Differential diagnosis includes pulmonary edema, atypical pneumonitis, and chronic interstitial lung disease. KUB X-Ray 02/16/19 06:53 IMPRESSION: Mild, nonspecific gaseous distention of the intestines. copyright 2010 [employer]- All Rights Reserved Qualifiers - * PATIENT BEING DISCHARGED WITH ANY OF THE FOLLOWING DIAGNOSIS: No Acute Heart Failure - Is this a Heart Failure Patient?: No
== END 2019-02-17 21:27 | disposition home or self-care (01) | DRG 190 ==
LOC: ER 06:04 → EH 09:34 → 3S 16:39
PROVIDERS: ADMIT Internal Medicine; ATTEND Internal Medicine
DX: J44.0 Chronic obstructive pulmonary disease with (acute) lower respiratory infection (principal); J13 Pneumonia due to Streptococcus pneumoniae; L89.623 Pressure ulcer of left heel, stage 3; J96.01 Acute respiratory failure with hypoxia; L89.613 Pressure ulcer of right heel, stage 3; R65.10 Systemic inflammatory response syndrome (SIRS) of non-infectious origin without acute organ dysfunction; L97.422 Non-pressure chronic ulcer of left heel and midfoot with fat layer exposed; L97.412 Non-pressure chronic ulcer of right heel and midfoot with fat layer exposed; G11.9 Hereditary ataxia, unspecified; J44.1 Chronic obstructive pulmonary disease with (acute) exacerbation; G31.83 Neurocognitive disorder with Lewy bodies; F02.80 Dementia in other diseases classified elsewhere, unspecified severity, without behavioral disturbance, psychotic disturbance, mood disturbance, and anxiety; B95.62 Methicillin resistant Staphylococcus aureus infection as the cause of diseases classified elsewhere; Z66 Do not resuscitate; I10 Essential (primary) hypertension; E78.5 Hyperlipidemia, unspecified; B96.20 Unspecified Escherichia coli [E. coli] as the cause of diseases classified elsewhere; B95.2 Enterococcus as the cause of diseases classified elsewhere; M62.462 Contracture of muscle, left lower leg; M62.461 Contracture of muscle, right lower leg; K21.9 Gastro-esophageal reflux disease without esophagitis; M19.042 Primary osteoarthritis, left hand; M19.041 Primary osteoarthritis, right hand; K59.00 Constipation, unspecified; Z99.3 Dependence on wheelchair; Z87.891 Personal history of nicotine dependence
CPT/HCPCS: 36415; 71045; 74018; 80048; 80053; 81001; 82803; 83605; 83690; 83735; 84439; 84443; 84481; 84484; 85025; 87040; 87070; 87077; 87086; 87186; 87205; 93005; 93010; 94640; 96365; 96366; 96375; 99285; J0696; J1630; J1650; J1956; J2060; J7060; J7120; J7620

== ENCOUNTER → 2019-03-17 | Outpatient (CLI) | payer MEDICARE, MEDICAID ==
[2019-03-17 14:59] LABS: ABSOLUTE EOSINOPHILS # (AUTO) 0.1 10^3/uL (0.0-0.6); ABSOLUTE LYMPHOCYTES (AUTO) 1.4 10^3/uL (0.5-4.7); ABSOLUTE MONOCYTES (AUTO) 0.4 10^3/uL (0.1-1.4); ABSOLUTE NEUT (AUTO) 7.1 10^3/uL (1.7-8.2); BASOPHILS % (AUTO) 0.4 % (0-2); EOSINOPHILS % (AUTO) 1.2 % (0-6); HEMATOCRIT 36.5 % (36.0-47.0); HEMOGLOBIN 12.3 g/dL (12.0-15.5); LYMPHOCYTES % (AUTO) 15.7 % (13-45); MEAN CORPUSCULAR HEMOGLOBIN 31.1 pg (27.0-33.4); MEAN CORPUSCULAR HGB CONC 33.6 g/dL (32.0-36.0); MEAN CORPUSCULAR VOLUME 93 fl (80-97); PLATELET COUNT 282 10^3/uL (150-450); RED BLOOD COUNT 3.94 10^6/uL (3.72-5.28); RED CELL DISTRIBUTION WIDTH 13.3 % (11.5-14.0); SEGMENTED NEUTROPHILS % (AUTO) 78.7 % (42-78); TOTAL CELLS COUNTED % (AUTO) 100 %; WHITE BLOOD COUNT 9.1 10^3/uL (4.0-10.5)
--- NOTE | 2019-03-17 15:13 | RADIOLOGY REPORT (SQ) ---
EXAM DESCRIPTION: TIBIA FIBULA LEFT COMPLETED DATE/TIME: 03/17/2019 3:03 pm REASON FOR STUDY: L89.620 PRESSURE ULCER OF LEFT HEEL, UNSTAGEABLE L89.620 PRESSURE ULCER OF LEFT H EEL, UNSTAGEABLE L89.619 PRESSURE ULCER OF RIGHT HEEL, UNSPECIFIED STAGE COMPARISON: None. NUMBER OF VIEWS: Two views. TECHNIQUE: Two radiographic images acquired of the left tibia and fibula to include the knee and ank le in at least one projection. LIMITATIONS: None. FINDINGS: MINERALIZATION: Osteopenia. BONES: No acute fracture or dislocation. No worrisome bone lesions. There is a chronic healed fractur e of the proximal fibula. SOFT TISSUES: Pressure ulcer involving the heel. OTHER: No other significant finding. IMPRESSION: Soft tissue defect consistent with pressure ulcer. No conventional radiographic evidenc e of osteomyelitis. TECHNICAL DOCUMENTATION: JOB ID: [id number] [employer]- All Rights Reserved Reading location - IP/workstation name: [email or web address]
--- NOTE | 2019-03-17 15:14 | RADIOLOGY REPORT (SQ) ---
EXAM DESCRIPTION: FOOT LEFT COMPLETE COMPLETED DATE/TIME: 03/17/2019 3:03 pm REASON FOR STUDY: L89.620 PRESSURE ULCER OF LEFT HEEL, UNSTAGEABLE L89.620 PRESSURE ULCER OF LEFT H EEL, UNSTAGEABLE L89.619 PRESSURE ULCER OF RIGHT HEEL, UNSPECIFIED STAGE COMPARISON: None. NUMBER OF VIEWS: Three views. TECHNIQUE: AP, lateral and oblique without weight bearing radiographic images acquired of the left f oot. LIMITATIONS: None. FINDINGS: MINERALIZATION: Osteopenia. BONES: No acute fracture or dislocation. No worrisome bone lesions. No conventional radiographic evid ence of osteomyelitis. JOINTS: No erosions. No padmini-articular osteopenia. No chondrocalcinosis. SOFT TISSUES: Soft tissue defect consistent with pressure ulcer. OTHER: No other significant finding. IMPRESSION: Soft tissue defect. No conventional radiographic evidence of osteomyelitis. TECHNICAL DOCUMENTATION: JOB ID: [id number] [email or web address]- All Rights Reserved Reading location - IP/workstation name: [email or web address]
--- NOTE | 2019-03-17 15:15 | RADIOLOGY REPORT (SQ) ---
EXAM DESCRIPTION: OS CALCIS/HEEL RIGHT COMPLETED DATE/TIME: 03/17/2019 3:03 pm REASON FOR STUDY: L89.619 PRESSURE ULCER OF RIGHT HEEL, UNSPECIFIED STAGE L89.620 PRESSURE ULCER OF LEFT HEEL, UNSTAGEABLE L89.619 PRESSURE ULCER OF RIGHT HEEL, UNSPECIFIED STAGE COMPARISON: None. NUMBER OF VIEWS: Two views. TECHNIQUE: Plantar and lateral images acquired of the right calcaneous. LIMITATIONS: None. FINDINGS: MINERALIZATION: Osteopenia. BONES: No acute fracture or dislocation. No worrisome bone lesions. JOINTS: No effusions. SOFT TISSUES: No soft tissue swelling. No foreign body. OTHER: Postsurgical changes in the distal tibia and fibula. IMPRESSION: Osteopenia. Postsurgical changes in the distal tibia and fibula. No acute findings. TECHNICAL DOCUMENTATION: JOB ID: [id number] [employer]- All Rights Reserved Reading location - IP/workstation name: [email or web address]
[2019-03-17 15:20] LABS: ALANINE AMINOTRANSFERASE 40 U/L (9-52); ALBUMIN 3.8 g/dL (3.5-5.0); ALKALINE PHOSPHATASE 157 U/L (38-126); ANION GAP 10 (5-19); ASPARTATE AMINO TRANSFERASE 36 U/L (14-36); BILIRUBIN,DIRECT 0.3 mg/dL (0.0-0.4); BILIRUBIN,TOTAL 0.4 mg/dL (0.2-1.3); BLOOD UREA NITROGEN 16 mg/dL (7-20); C-REACTIVE PROTEIN 77.6 mg/L (<10.0); CALCIUM 9.5 mg/dL (8.4-10.2); CARBON DIOXIDE 27 mmol/L (22-30); CHLORIDE 99 mmol/L (98-107); GLUCOSE 179 mg/dL (75-110); POTASSIUM 4.3 mmol/L (3.6-5.0)
[2019-03-17 15:35] LABS: ERYTHROCYTE SEDIMENTATION RATE 104 mm/hr (0-30)
== END ==
LOC: RAD 14:00
PROVIDERS: ATTEND Nurse Practitioner Family
DX: L89.620 Pressure ulcer of left heel, unstageable (principal); L89.619 Pressure ulcer of right heel, unspecified stage; M85.871 Other specified disorders of bone density and structure, right ankle and foot
CPT/HCPCS: 36415; 80053; 85025; 85652; 86140

== ENCOUNTER 2019-03-20 10:56 | Observation (INO) | payer MEDICARE, MEDICAID ==
[2019-03-20] MEDS ORDERED: MORPHINE SULFATE 10 MG/ML INJ IV ONE (12:16)
[2019-03-20] MEDS ORDERED: MORPHINE SULFATE 10 MG/ML INJ ONE (12:26)
--- NOTE | 2019-03-20 12:27 | ER Document Report ---
ED General - General Chief Complaint: Wound Infection Stated Complaint: POSSIBLE ANIMAL BITE Time Seen by Provider: 03/20/19 11:55 Primary Care Provider: ERIC GUTHRIE MD [Primary Care Provider] - Follow up as needed TRAVEL OUTSIDE OF THE [place] IN LAST 30 DAYS: No - HPI Notes: Patient is a 73-year-old female with advancing dementia that presents to the emergency department for chief complaint of left leg wound. HPI provided by patient's daughter Susan. Patient lives at home with her daughter who is her power of insurance defense attorney. She has been having functional decline over the last few months. Patient has had recent admissions for poor oral intake. She is currently set up with home health and family has been deciding on when to go into hospice. Patient has peripheral vascular disease and has been having worsening wounds on her feet. Daughter states that this morning patient woke up with a large amount of blood around her left leg and a large left leg wound that was not there yesterday. Patient's mentation has been at her baseline, she has been in good spirits without fevers. Patient does not currently have pain medication at home. Past Medical History: COPD, dementia, hypertension, hyperlipidemia, peripheral vascular disease Past Surgical History: Reviewed in chart Social History: Lives with daughter, no alcohol or tobacco use Family History: Reviewed and noncontributory for presenting illness Allergies: Reviewed, see documented allergy list. REVIEW OF SYSTEMS: Unable to obtain because of dementia PHYSICAL EXAMINATION: Vital signs reviewed, nursing noted reviewed. GENERAL: Well-appearing, well-nourished and in no acute distress. HEAD: Atraumatic, normocephalic. EYES: Eyes appear normal, extraocular movements intact, sclera anicteric, co njunctiva are normal. ENT: nares patent, oropharynx clear without exudates. Mildly dry mucous membranes. NECK: Normal range of motion, supple without lymphadenopathy LUNGS: Breath sounds clear to auscultation bilaterally and equal. No wheezes rales or rhonchi. HEART: Regular rate and rhythm without murmurs ABDOMEN: Soft, nontender, normoactive bowel sounds. No rebound, guarding, or rigidity. No masses appreciated. EXTREMITIES: Left lower extremity atrophy with deep wound from lateral aspect of left lower extremity wrapping to the posterior aspect with exposed muscle and tendons, mild bleeding. Bilateral heel ulcers with black eschars. Left foot dorsal eschar. NEUROLOGICAL: Bilateral lower extremity paralysis and decreased sensation. Oriented to person. Alert PSYCH: Normal mood, normal affect. SKIN: Warm, Dry, normal turgor. Multiple lower extremity wounds as described above - Related Data Allergies/Adverse Reactions: No Known Allergies Allergy (Verified 02/16/19 09:58) Past Medical History - Social History Smoking Status: Never Smoker Family History: None, Reviewed & Not Pertinent - Past Medical History Cardiac Medical History: Reports: Hx Hypertension - Hx of, no meds ever Denies: Hx Heart Attack Pulmonary Medical History: Reports: Hx Bronchitis, Hx COPD Denies: Hx Asthma, Hx Pneumonia Neurological Medical History: Denies: Hx Seizures Renal/ Medical History: Denies: Hx Peritoneal Dialysis GI Medical History: Reports: Hx Gastroesophageal Reflux Disease Musculoskeletal Medical History: Reports Hx Arthritis - hands, Comment Only Hx Muscle Weakness - From progressive ataxia slurred speech and decreased use of lower extremiti Psychiatric Medical History: Reports: Hx Dementia, Hx Depression Infectious Medical History: Past Surgical History: Reports: Hx Hysterectomy, Hx Orthopedic Surgery - L foot; R ankle - Immunizations Immunizations up to date: No Hx Diphtheria, Pertussis, Tetanus Vaccination: Yes Hx Pneumococcal Vaccination: 07/29/13 Physical Exam - Vital signs Vitals: Temp Pulse Resp BP Pulse Ox 97.6 F 96 16 121/93 H 97 03/20/19 11:05 03/20/19 11:05 03/20/19 11:05 03/20/19 11:05 03/20/19 11:05 Course - Re-evaluation Re-evalutation: 03/20/19 13:04 Vitals reviewed. Nursing notes reviewed. Patient has extensive wound dehiscence on her left lower extremity with exposed tendons and muscles. Patient has known peripheral vascular disease and had been offered amputation and bypass grafting. Patient is not a candidate for surgery because of her advancing dementia and failure to thrive with no good oral intake. Have had lengthy discussions with patient's daughter regarding goals of care. Patient does have an x-ray from 4 days ago which showed no soft tissue damage to the left lower extremity, this ulcer appeared overnight and is deep and extensive. Patient has been given pain medication. Because she is not a surgical candidate patient is requiring hospice care for pain control. Her wound is not currently infected because it just opened up today however she has a very high likelihood of infection because of the poor peripheral flow and how extensive the wound is. Patient's daughter is in agreement at this point further diagnostics not indicated because she is not going to pursue further treatment. Patient has been made comfort measures only and will continue to receive pain control and wound care. She does have home health set up at home but not currently hospice to manage. She will be admitted to the hospital for arrangement of hospice and pain control. Patient's care discussed with admitting provider Leonor Garza who accepts admission. - Vital Signs Vital signs: Temp Pulse Resp BP Pulse Ox 97.6 F 96 16 121/93 H 97 03/20/19 11:05 03/20/19 11:05 03/20/19 11:05 03/20/19 11:05 03/20/19 11:05 Discharge - Discharge Clinical Impression: Wound of left lower extremity Qualifiers: Encounter type: initial encounter Qualified Code(s): S81.802A - Unspecified open wound, left lower leg, initial encounter Failure to thrive Qualifiers: Failure to thrive age range: in adult Qualified Code(s): R62.7 - Adult failure to thrive Condition: Stable Disposition: ADMITTED INPATIENT Admitting Provider: Leonor Garza Unit Admitted: Medical Floor Referrals: ERIC GUTHRIE MD [Primary Care Provider] - Follow up as needed
[2019-03-20] MEDS ORDERED: ACETAMINOPHEN 325 MG TABLET PO PRN (13:18)
[2019-03-20] MEDS ORDERED: ONDANSETRON HCL INJ/PF 4 MG/2 ML SDV IV PRN (13:18)
[2019-03-20] MEDS ORDERED: MAGNESIUM HYDROXIDE SUSP 30 ML UDCUP PO PRN (13:18)
[2019-03-20] MEDS ORDERED: HYDROCOD/ACETAMIN 7.5-325 MG/15 ML ORAL SOLN UDCUP PO PRN (16:25)
[2019-03-20] MEDS ORDERED: LORAZEPAM 1 MG TABLET PO PRN (16:27)
[2019-03-20] MEDS ORDERED: BUDESONIDE NEB 0.5 MG/2 ML AMPUL NEB PRN (16:28)
[2019-03-20] MEDS ORDERED: IPRATROPIUM/ALBUTEROL 0.5-2.5 MG/3 ML AMPUL NEB PRN (16:28)
--- NOTE | 2019-03-20 16:42 | PDOC H&P ---
History of Present Illness Admission Date/PCP: 03/20/19 13:34 ERIC GUTHRIE MD Patient complains of: Left lower extremity wound History of Present Illness: Patient is a 73-year-old female with advancing dementia that presents to the emergency department for chief complaint of left leg wound. HPI provided by patient's daughter Susan. Patient lives at home with her daughter who is her power of document review attorney. She has been having functional decline over the last few months. Patient has had recent admissions for poor oral intake. She is currently set up with home health and family has been deciding on when to go into hospice. Patient has peripheral vascular disease and has been having worsening wounds on her feet. Daughter states that this morning patient woke up with a large amount of blood around her left leg and a large left leg wound that was not there yesterday. Patient's mentation has been at her baseline, she has been in good spirits without fevers. Patient does not currently have pain medication at home. Past Medical History Cardiac Medical History: Reports: Hypertension - Hx of, no meds ever Denies: Myocardial Infarction Pulmonary Medical History: Reports: Bronchitis, Chronic Obstructive Pulmonary Disease (COPD) Denies: Asthma, Pneumonia Neurological Medical History: Denies: Seizures GI Medical History: Reports: Gastroesophageal Reflux Disease Musculoskeltal Medical History: Reports: Arthritis - hands Psychiatric Medical History: Reports: Dementia, Depression Hematology: Reports: Anemia - as toddler only Past Surgical History Past Surgical History: Reports: Hysterectomy, Orthopedic Surgery - L foot; R ankle Social History Information Source: Relative Lives with: Family Smoking Status: Never Smoker Frequency of Alcohol Use: None Hx Recreational Drug Use: No Drugs: None Hx Prescription Drug Abuse: No - Advance Directive Resuscitation Status: Do Not Resuscitate Surrogate healthcare decision maker:: Daughter Susan Family History Family History: None, Reviewed & Not Pertinent Parental Family History Reviewed: Yes Children Family History Reviewed: Yes Sibling(s) Family History Reviewed.: Yes Medication/Allergy Home Medications: Losartan Potassium [Cozaar 25 mg Tablet] 25 mg PO DAILY 02/16/19 Quetiapine Fumarate [Seroquel] 25 mg PO QAM 30 Days #30 tablet 02/17/19 Budesonide [Pulmicort Neb 0.5 mg/2 ml Ampul] 0.5 mg NEB RTQ6HP PRN 03/20/19 Ipratropium/Albuterol Sulfate [Duoneb 3 ml Ampul] 3 ml NEB RTQ6HP PRN 03/20/19 Lactulose 10 gm PO DAILY 03/20/19 Allergies/Adverse Reactions: No Known Allergies Allergy (Verified 02/16/19 09:58) Review of Systems ROS unobtainable: Due to mental status Physical Exam Vital Signs: Temp Pulse Resp BP Pulse Ox 97.6 F 95 18 118/65 96 03/20/19 11:05 03/20/19 13:51 03/20/19 13:51 03/20/19 13:51 03/20/19 13:51 Intake & Output 03/19/19 03/20/19 03/21/19 06:59 06:59 06:59 Weight 77.3 kg General appearance: PRESENT: no acute distress, obese, well-developed, well- nourished Head exam: PRESENT: atraumatic, normocephalic Eye exam: PRESENT: conjunctiva pink, EOMI, PERRLA. ABSENT: scleral icterus Ear exam: PRESENT: normal external ear exam Mouth exam: PRESENT: moist, neck supple, tongue midline Teeth exam: PRESENT: edentulous Neck exam: ABSENT: carotid bruit, JVD, lymphadenopathy, thyromegaly Respiratory exam: PRESENT: decreased breath sounds, symmetrical, unlabored Cardiovascular exam: PRESENT: RRR. ABSENT: diastolic murmur, rubs, systolic murmur Pulses: PRESENT: normal carotid pulses, normal radial pulses - Left lower extremity atrophy with deep wound from lateral aspect of left lower extremity approximately 6 cm x 8 cm in diameter wrapping to the posterior aspect with exposed muscle and tendons, mild bleeding. Bilateral heel ulcers with black eschars. Left foot dorsal eschar. Vascular exam: PRESENT: pallor, other - Feet cool and pale to the touch GI/Abdominal exam: PRESENT: normal bowel sounds, soft. ABSENT: distended, guarding, mass, organolmegaly, rebound, tenderness Rectal exam: PRESENT: deferred Extremities exam: PRESENT: calf tenderness, other Musculoskeletal exam: PRESENT: tenderness Neurological exam: PRESENT: alert, altered, CN II-XII grossly intact, other - Disoriented x 3. Lower extremity paralysis and sensation Psychiatric exam: PRESENT: anxious Focused psych exam: PRESENT: flight of ideas Skin exam: PRESENT: erythema - Several, other - Left lower extremity atrophy with deep wound from lateral aspect of left lower extremity approximately 6 cm x 8 cm in diameter wrapping to the posterior aspect with exposed muscle and tendons, mild bleeding. Bilateral heel ulcers with black eschars. Left foot dorsal eschar. Assessment and Plan - Diagnosis (1) Uncontrolled pain Is this a current diagnosis for this admission?: Yes Plan: PAtient with new large open wound to left lower extremity with tendon exposured due to severe PVD. Daughter Susan, who is patient's MPOA wants comfort measures only. She is not eating or drinking much at this time. We will start with fentanyl patch with break through liquid loritab at this time. Titrate fentanyl as she needs. Family want home hospice once symptoms are controlled (2) Wound of left lower extremity Qualifiers: Encounter type: initial encounter Qualified Code(s): S81.802A - Unspecified open wound, left lower leg, initial encounter Is this a current diagnosis for this admission?: Yes Plan: Family is wanting comfort measures at this time only. (3) Failure to thrive Qualifiers: Failure to thrive age range: in adult Qualified Code(s): R62.7 - Adult failure to thrive Is this a current diagnosis for this admission?: Yes (4) Peripheral vascular disease Is this a current diagnosis for this admission?: Yes (5) Acute respiratory failure with hypoxemia Is this a current diagnosis for this admission?: Yes (6) Advanced dementia Is this a current diagnosis for this admission?: Yes (7) Chronic heel ulcer Qualifiers: Laterality: left Non-pressure ulcer stage: with fat layer exposed Qualified Code(s): L97.422 - Non-pressure chronic ulcer of left heel and midfoot with fat layer exposed Is this a current diagnosis for this admission?: Yes (8) Peripheral vascular disease Is this a current diagnosis for this admission?: Yes - Time Time Spent with patient: 35 or more minutes Total Critical Time (Minutes): 45 Medications reviewed and adjusted accordingly: Yes Anticipated discharge: Hospice Within: within 48 hours
[2019-03-20] MEDS ORDERED: FENTANYL 25 MCG/HR PATCH.TD72 TD ONE (17:45)
[2019-03-20] MEDS: DOCUSATE SODIUM 100 MG CAPSULE PO SCH (18:58)
[2019-03-20] MEDS: QUETIAPINE FUMARATE 25 MG TABLET PO SCH (21:10)
[2019-03-21] MEDS: OXYCODONE-ACETAMINOPHEN 5-325 MG TABLET PO PRN ×3 (09:17→22:06)
[2019-03-21] MEDS: DOCUSATE SODIUM 100 MG CAPSULE PO SCH ×2 (09:45→18:25)
[2019-03-21] MEDS: LACTULOSE SYRUP 20 GM/30 ML UDCUP PO SCH (09:45)
[2019-03-21] MEDS ORDERED: (PENDING PHARMACY ID) (Lactulose [Lactulose] 10 GM) PO SCH (10:00)
[2019-03-21] MEDS ORDERED: HALOPERIDOL LACTATE INJ 5 MG/1 ML VIAL IM PRN (10:28)
--- NOTE | 2019-03-21 17:14 | PDOC PROGRESS REPORT ---
Subjective Progress Note for:: 03/21/19 Subjective:: Patient is seen resting in bed. She has no family at bedside presently. She is unable to answer questions or do review of systems due to mentation. Nursing reports she appears to grimace with pain Reason For Visit: Patient is seen resting in bed. She is awake and alert, eating breakfast. She is disoriented x 3. No family is presently available. Nursing report she became combative when they attempted to give her pain medication this morning. She does have fentanyl patch in place and appears comfortable until they reposition her legs then she grimaces with pain. No other issues overnight Physical Exam Vital Signs: Temp Pulse Resp BP Pulse Ox 97.6 F 95 18 118/65 96 03/20/19 11:05 03/20/19 13:51 03/20/19 13:51 03/20/19 13:51 03/20/19 13:51 Intake & Output 03/20/19 03/21/19 03/22/19 06:59 06:59 06:59 Intake Total 0 Balance 0 Weight 77 kg General appearance: PRESENT: no acute distress, obese, well-developed, well- nourished Head exam: PRESENT: atraumatic, normocephalic Eye exam: PRESENT: conjunctiva pink, EOMI, PERRLA. ABSENT: scleral icterus Ear exam: PRESENT: normal external ear exam Mouth exam: PRESENT: moist, neck supple, tongue midline Teeth exam: PRESENT: poor dentation Neck exam: ABSENT: carotid bruit, JVD, lymphadenopathy, thyromegaly Respiratory exam: PRESENT: clear to auscultation renu. ABSENT: rales, rhonchi, wheezes Cardiovascular exam: PRESENT: RRR. ABSENT: diastolic murmur, rubs, systolic murmur Pulses: PRESENT: normal dorsalis pedis pul Vascular exam: PRESENT: pallor GI/Abdominal exam: PRESENT: diminished bowel sounds, soft Rectal exam: PRESENT: deferred Extremities exam: PRESENT: calf tenderness, tenderness, +1 edema, other - Left lower extremity atrophy with deep wound from lateral aspect of left lower extremity approximately 6 cm x 8 cm in diameter wrapping to the posterior aspect with exposed muscle and tendons, mild bleeding. Bilateral heel ulcers with black eschars. Left foot dorsal eschar. Musculoskeletal exam: PRESENT: other - Atrophy of lower extremities due to paralysis. Neurological exam: PRESENT: alert, altered, CN II-XII grossly intact Psychiatric exam: PRESENT: agitated, anxious Focused psych exam: PRESENT: flight of ideas Skin exam: PRESENT: other - Left lower extremity atrophy with deep wound from lateral aspect of left lower extremity approximately 6 cm x 8 cm in diameter wrapping to the posterior aspect with exposed muscle and tendons, mild bleeding. Bilateral heel ulcers with black eschars. Left foot dorsal eschar. Assessment and Plan - Diagnosis (1) Uncontrolled pain Is this a current diagnosis for this admission?: Yes Plan: Patient with new large open wound to left lower extremity with tendon exposure due to severe PVD. She has multiple necrotic woundsd Daughter Susan, who is patient's MPOA wants comfort measures only. She is not eating or drinking much at this time. We will start with fentanyl patch with break through liquid loritab at this time. Titrate fentanyl as she needs. Family want home hospice once symptoms are controlled (2) Wound of left lower extremity Qualifiers: Encounter type: initial encounter Qualified Code(s): S81.802A - Unspecified open wound, left lower leg, initial encounter Is this a current diagnosis for this admission?: Yes Plan: Family is wanting comfort measures at this time only. (3) Failure to thrive Qualifiers: Failure to thrive age range: in adult Qualified Code(s): R62.7 - Adult failure to thrive Is this a current diagnosis for this admission?: Yes Plan: Allow patient to eat or drink when desired. Discussed reasoning behind not giving IV hydration to family. She is drinking at the present time. Appetite has been poor (4) Peripheral vascular disease Is this a current diagnosis for this admission?: Yes Plan: will focus measures on comfort (5) Advanced dementia Is this a current diagnosis for this admission?: Yes (6) Chronic heel ulcer Qualifiers: Laterality: left Non-pressure ulcer stage: with fat layer exposed Qualified Code(s): L97.422 - Non-pressure chronic ulcer of left heel and midfoot with fat layer exposed Is this a current diagnosis for this admission?: Yes - Time Time Spent with patient: 25 Medications reviewed and adjusted accordingly: Yes Anticipated discharge: Hospice Within: within 48 hours - Inpatient Certification Based on my medical assessment, after consideration of the patient's comorbidities, presenting symptoms, or acuity I expect that the services needed warrant INPATIENT care.: Yes I certify that my determination is in accordance with my understanding of Medicare's requirements for reasonable and necessary INPATIENT services [42 CFR 412.3e].: Yes Medical Necessity: Need for Pain Control
[2019-03-21] MEDS: QUETIAPINE FUMARATE 25 MG TABLET PO SCH (23:57)
[2019-03-22] MEDS: DOCUSATE SODIUM 100 MG CAPSULE PO SCH (10:06)
[2019-03-22] MEDS: LACTULOSE SYRUP 20 GM/30 ML UDCUP PO SCH (10:06)
[2019-03-22 10:37] VITALS: BP 133/57
[2019-03-22] MEDS ORDERED: HYDROCOD/ACETAMIN 7.5-325 MG/15 ML ORAL SOLN UDCUP PO PRN (14:09)
--- NOTE | 2019-03-22 16:44 | PDOC DISCHARGE SUMMARY ---
General - Admit/Disc Date/PCP Admission Date/Primary Care Provider: 03/20/19 13:34 ERIC GUTHRIE MD Discharge Date: 03/22/19 - Discharge Diagnosis (1) Uncontrolled pain Is this a current diagnosis for this admission?: Yes (2) Wound of left lower extremity Is this a current diagnosis for this admission?: Yes (3) Failure to thrive Is this a current diagnosis for this admission?: Yes (4) Peripheral vascular disease Is this a current diagnosis for this admission?: Yes (5) Advanced dementia Is this a current diagnosis for this admission?: Yes (6) Chronic heel ulcer Is this a current diagnosis for this admission?: Yes - Additional Information Resuscitation Status: Comfort Measures Only Discharge Diet: Regular Discharge Activity: Activity As Tolerated Prescriptions: Hydrocodone/Acetaminophen [Lortab 7.5-325 mg/15 ml Oral Soln] 15 ml PO Q4HP PRN #450 ml PRN Reason: Fentanyl [Duragesic 25 mcg/hr Transdermal Patch] 1 each TD Q72H #3 patch.td72 Home Medications: Budesonide [Pulmicort Neb 0.5 mg/2 ml Ampul] 0.5 mg NEB RTQ6HP PRN 03/20/19 Ipratropium/Albuterol Sulfate [Duoneb 3 ml Ampul] 3 ml NEB RTQ6HP PRN 03/20/19 Lactulose 10 gm PO DAILY 03/20/19 Quetiapine Fumarate [Seroquel] 50 mg PO QHS 03/20/19 Fentanyl [Duragesic 25 mcg/hr Transdermal Patch] 1 each TD Q72H #3 patch.td72 03/22/19 Hydrocodone/Acetaminophen [Lortab 7.5-325 mg/15 ml Oral Soln] 15 ml PO Q4HP PRN #450 ml 03/22/19 History of Present Illness Patient complains of: Intractable pain and failure to thrive History of Present Illness: Edith Hassan is a 73-year-old female with advancing dementia that presents to the emergency department for chief complaint of left leg wound. History is provided by patient's daughter Susan. Patient has advanced vascular dementia. She lives at home with her daughter who is her power of claim attorney. She has been having functional decline over the last few months. She has had recent admissions for poor oral intake. She is currently set up with home health and family has been deciding on when to go into hospice. Patient has peripheral vascular disease and has been having worsening wounds on her feet. Daughter states that this morning patient woke up with a large amount of blood around her left leg and a large left leg wound that was not there yesterday. Patient's mentation has been at her baseline, she has been in good spirits without fevers. Patient does not currently have pain medication at home. Hospital Course Hospital Course: Hospitalist service on the medical floor. Advance care planning was discussed with patient's family. He was not able to participate in goals of care discussion because of her advanced vascular dementia. Daughter states mother has no quality of life any longer. She is taking very little in orally. She has had excruciating pain with her lower extremity leg wounds. She has extensive peripheral vascular disease and paralysis. She had a area of dark eschar slough off exposing tendons and ligaments. She grimaces in pain anytime she is moved. She has had no pain medicine at home. The family has not decided they wish to proceed with comfort measures only and hospice care at home. Patient will be admitted to the hospital started on pain medicine. We discussed starting her on transdermal fentanyl patches the family is in agreement to that. We will supplement with oral liquid hydrocodone as well. We discussed needing to place patches on her back so she will not pick at them or pull them off. She was started on fentanyl 25 mcg every 72 hours and hydrocodone/acetaminophen 7.5/325 for 15 mL's every 4 hours as needed for breakthrough pain. This seemed to provide her good pain relief. We discussed with nursing the need to premedicate her prior to any type of wound care or turning her. This is provided significant relief for her. We have continued her Seroquel that she takes for bedtime at home. We have allowed her to eat or drink whatever she wants. Case management was consulted. They discussed hospice services at home. Patient has been followed by [facility]. The family would like to continue with them. They do not feel that she will need inpatient placement for hospice care. They would like her to pass away peacefully at home. Arrangements were made by case management to continue care at home with [facility] this and home health services. is her primary care provider. Physical Exam Vital Signs: Temp Pulse Resp BP Pulse Ox 98.9 F 103 H 18 133/57 H 94 03/22/19 07:00 03/22/19 07:00 03/22/19 07:00 03/22/19 07:00 03/22/19 07:00 Intake & Output 03/21/19 03/22/19 03/23/19 06:59 06:59 06:59 Intake Total 0 Balance 0 Weight 77 kg 77 kg General appearance: PRESENT: no acute distress, obese, well-developed, well- nourished Head exam: PRESENT: atraumatic, normocephalic Eye exam: PRESENT: conjunctiva pink, EOMI, PERRLA. ABSENT: scleral icterus Ear exam: PRESENT: normal external ear exam Mouth exam: PRESENT: moist, tongue midline Teeth exam: PRESENT: poor dentation Neck exam: ABSENT: carotid bruit, JVD, lymphadenopathy, thyromegaly Respiratory exam: PRESENT: clear to auscultation renu, decreased breath sounds, symmetrical, unlabored. ABSENT: rales, rhonchi, wheezes Cardiovascular exam: PRESENT: RRR. ABSENT: diastolic murmur, rubs, systolic murmur Pulses: PRESENT: normal carotid pulses, normal radial pulses Vascular exam: PRESENT: normal capillary refill GI/Abdominal exam: PRESENT: normal bowel sounds, soft. ABSENT: distended, guarding, mass, organolmegaly, rebound, tenderness Extremities exam: PRESENT: calf tenderness, other - calf tenderness, tenderness, +1 edema, other - Left lower extremity atrophy with deep wound from lateral aspect of left lower extremity approximately 6 cm x 8 cm in diameter wrapping to the posterior aspect with exposed muscle and tendons, mild bleeding. Bilateral heel ulcers with black eschars. Left foot dorsal eschar. Neurological exam: PRESENT: alert, altered, awake, oriented to person, CN II-XII grossly intact Psychiatric exam: PRESENT: anxious, flat affect Focused psych exam: PRESENT: flight of ideas Skin exam: PRESENT: other - Left lower extremity atrophy with deep wound from lateral aspect of left lower extremity approximately 6 cm x 8 cm in diameter wrapping to the posterior aspect with exposed muscle and tendons, mild bleeding. Bilateral heel ulcers with black eschars. Left foot dorsal eschar. Qualifiers - * PATIENT BEING DISCHARGED WITH ANY OF THE FOLLOWING DIAGNOSIS: No Acute Heart Failure - Is this a Heart Failure Patient?: No Plan Discharge Plan: Home with family, management per [facility] Time Spent: Less than 30 Minutes
== END 2019-03-22 16:30 | disposition hospice, home (50) ==
LOC: ER 10:56 → EH 13:34 → 4S 15:43
PROVIDERS: ADMIT Internal Medicine; ATTEND Internal Medicine
DX: R52 Pain, unspecified (principal); S81.802A Unspecified open wound, left lower leg, initial encounter; X58.XXXA Exposure to other specified factors, initial encounter; I73.89 Other specified peripheral vascular diseases; F03.91 Unspecified dementia, unspecified severity, with behavioral disturbance; R62.7 Adult failure to thrive; G83.9 Paralytic syndrome, unspecified; L97.422 Non-pressure chronic ulcer of left heel and midfoot with fat layer exposed; L97.418 Non-pressure chronic ulcer of right heel and midfoot with other specified severity; E66.9 Obesity, unspecified; R27.0 Ataxia, unspecified; R47.81 Slurred speech; M62.81 Muscle weakness (generalized); J44.9 Chronic obstructive pulmonary disease, unspecified; I10 Essential (primary) hypertension; Z66 Do not resuscitate; Z79.899 Other long term (current) drug therapy; J96.01 Acute respiratory failure with hypoxia; Z98.890 Other specified postprocedural states
CPT/HCPCS: 99284; 96374; G0378 ×4; A9270 ×4; J2270; J3490